=== PATIENT | male | born 1940 | race Caucasian/White ===

== ENCOUNTER 2019-03-04 22:54 | Emergency (ER) | payer MEDICARE, OTHER ==
[~2019-03-04] VITALS: Ht 180.3 cm; Wt 95.3 kg
[~2019-03-04 22:54] MED LIST: EPINEPHRINE HCL SYRINGE ONE
--- OUTSIDE RECORDS SUMMARY | 2019-03-04 22:58 | XMS REPORT ---
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 Allergies, Adverse Reactions, Alerts Allergy Name Allergy Type Status Severity Reaction(s) Onset Date Inactive Date Treating Clinician Comments Penicillins DA Active U 2019-01-21 00:00:00 vancomycin DA Active U 2019-01-21 00:00:00 VANCOMYOCIN DA Active U 2019-01-21 00:00:00 Penicillins DA Active U 2018-11-07 00:00:00 Medications This patient has no known medications. Results Test Description Test Time Test Comments Text Results Atomic Results Result Comments AG HISTOPLASMA UA 2019-01-30 11:41:00 AG HISTOPLASMA UA (test code=HISUAAG) <0.5 EIA UNIT <1.0=NEG REFERENCE INTERVAL: <0.5 ng/mL [id number] 15:29:00* Test Item Value Reference Range Comments GLUBED (test code=GLUBED) 168 mg/dL 74-106 Performed by certified stretch press operator at [facility] [id number] 11:03:00* Test Item Value Reference Range Comments GLUBED (test code=GLUBED) 238 mg/dL 74-106 Performed by certified stretch press operator at [facility] CBC W/AUTO [id number] 08:30:00* Test Item Value Reference Range Comments WHITE BLOOD CELL (test code=WBC) 15.9 K/mm3 4.5-12.5 RED BLOOD CELL (test code=RBC) 3.16 mill/mm3 4.0-5.8 HEMOGLOBIN (test code=HGB) 8.9 gram/dL 13.0-17.5 HEMATOCRIT (test code=HCT) 30.4 % 42.0-52.0 MEAN CELL VOLUME (test code=MCV) 96.2 fL 80-98 MEAN CELL HGB (test code=MCH) 28.2 picogram 27.0-33.0 MEAN CELL HGB CONCETRATION (test code=MCHC) 29.3 gram/dL 33.0-36.0 RED CELL DISTRIBUTION WIDTH (test code=RDW) 15.4 % 11.6-16.2 RED CELL DISTRIBUTION WIDTH SD (test code=RDW-SD) 54.0 fL 37.0-51.0 PLATELET COUNT (test code=PLT) 520 K/mm3 150-450 RESULT VERIFIED BY REPEAT ANALYSIS MEAN PLATELET VOLUME (test code=MPV) 12.4 fL 6.7-11.0 NEUTROPHIL % (test code=NT%) 82.3 % 39.0-69.0 IMMATURE GRANULOCYTE % (test code=IG%) 0.9 % 0.0-5.0 LYMPHOCYTE % (test code=LY%) 5.0 % 25.0-55.0 MONOCYTE % (test code=MO%) 6.0 % 0.0-10.0 EOSINOPHIL % (test code=EO%) 5.6 % 0.0-5.0 BASOPHIL % (test code=BA%) 0.2 % 0.0-1.0 NUCLEATED RBC % (test code=NRBC%) 0.0 % 0-0 NEUTROPHIL # (test code=NT#) 13.10 K/mm3 1.8-7.7 IMMATURE GRANULOCYTE # (test code=IG#) 0.15 x10 3/uL 0-0.03 LYMPHOCYTE # (test code=LY#) 0.79 K/mm3 1.0-5.0 MONOCYTE # (test code=MO#) 0.96 K/mm3 0-0.8 EOSINOPHIL # (test code=EO#) 0.89 K/mm3 0.0-0.5 BASOPHIL # (test code=BA#) 0.03 K/mm3 0.0-0.2 NUCLEATED RBC # (test code=NRBC#) 0.00 K/mm3 0.0-0.1 MANUAL DIFF REQUIRED (test code=MDIFF) NO, ONLY SCAN NEEDED DIFFERENTIAL [id number] 08:30:00* Test Item Value Reference Range Comments STAIN ACCEPTABILITY (test code=STN ACCEPTABLE) STAIN ACCEPTABLE POLYCHROMASIA (test code=POLC) 1+ ANISOCYTOSIS (test code=ANISO) 1+ MICROCYTOSIS (test code=MICR) 1+ PLATELET ESTIMATE (test code=PLTEST) INCREASED PLATELET MORPHOLOGY (test code=PLTMORPH) NORMAL COMPREHENSIVE METABOLIC [id number] 08:07:00* Test Item Value Reference Range Comments SODIUM (test code=NA) 141 mmol/L 136-145 POTASSIUM (test code=K) 4.4 mmol/L 3.5-5.1 CHLORIDE (test code=CL) 101.0 mmol/L 98-107 CARBON DIOXIDE (test code=CO2) 37.0 mmol/L 21-32 ANION GAP (test code=GAP) 7.4 10-20 GLUCOSE (test code=GLU) 210 mg/dL 74-106 BLOOD UREA NITROGEN (test code=BUN) 52 mg/dL 7-18 GLOMERULAR FILTRATION RATE (test code=GFR) > 60 mL/min >=60 Estimated GFR by using Modified MDRD formula.Chronic kidney disease is defined as either kidney damageor GFR <60 mL/min/1.73 m2 for >3 months. CREATININE (test code=CREAT) 0.70 mg/dL 0.7-1.3 BUN/CREATININE RATIO (test code=BUN/CREA) 74.3 10-20 TOTAL PROTEIN (test code=PROT) 6.0 gram/dL 6.4-8.2 ALBUMIN (test code=ALB) 1.2 g/dL 3.4-5.0 GLOBULIN (test code=GLOB) 4.8 gram/dL 2.7-4.2 ALBUMIN/GLOBULIN RATIO (test code=A/G) 0.3 0.75-1.50 CALCIUM (test code=CA) 9.2 mg/dL 8.5-10.1 BILIRUBIN TOTAL (test code=BILT) 0.10 mg/dL 0.0-1.0 SGOT/AST (test code=AST) 29 IUnit/L 15-37 SGPT/ALT (test code=ALT) 35 IUnit/L 12-78 ALKALINE PHOSPHATASE TOTAL (test code=ALKP) 221 IUnit/L 45-117 Note change in reference range due to change in reagent. COMPREHENSIVE METABOLIC [id number] 08:00:00* Test Item Value Reference Range Comments SODIUM (test code=NA) 141 mmol/L 136-145 POTASSIUM (test code=K) 4.4 mmol/L 3.5-5.1 CHLORIDE (test code=CL) 101.0 mmol/L 98-107 CARBON DIOXIDE (test code=CO2) mmol/L 21-32 ANION GAP (test code=GAP) 10-20 GLUCOSE (test code=GLU) mg/dL 74-106 BLOOD UREA NITROGEN (test code=BUN) mg/dL 7-18 GLOMERULAR FILTRATION RATE (test code=GFR) mL/min >=60 CREATININE (test code=CREAT) mg/dL 0.7-1.3 BUN/CREATININE RATIO (test code=BUN/CREA) 10-20 TOTAL PROTEIN (test code=PROT) gram/dL 6.4-8.2 ALBUMIN (test code=ALB) g/dL 3.4-5.0 GLOBULIN (test code=GLOB) gram/dL 2.7-4.2 ALBUMIN/GLOBULIN RATIO (test code=A/G) 0.75-1.50 CALCIUM (test code=CA) mg/dL 8.5-10.1 BILIRUBIN TOTAL (test code=BILT) mg/dL 0.0-1.0 SGOT/AST (test code=AST) IUnit/L 15-37 SGPT/ALT (test code=ALT) IUnit/L 12-78 ALKALINE PHOSPHATASE TOTAL (test code=ALKP) IUnit/L 45-117 CBC W/AUTO [id number] 07:23:00* Test Item Value Reference Range Comments WHITE BLOOD CELL (test code=WBC) 15.9 K/mm3 4.5-12.5 RED BLOOD CELL (test code=RBC) 3.16 mill/mm3 4.0-5.8 HEMOGLOBIN (test code=HGB) 8.9 gram/dL 13.0-17.5 HEMATOCRIT (test code=HCT) 30.4 % 42.0-52.0 MEAN CELL VOLUME (test code=MCV) 96.2 fL 80-98 MEAN CELL HGB (test code=MCH) 28.2 picogram 27.0-33.0 MEAN CELL HGB CONCETRATION (test code=MCHC) 29.3 gram/dL 33.0-36.0 RED CELL DISTRIBUTION WIDTH (test code=RDW) 15.4 % 11.6-16.2 RED CELL DISTRIBUTION WIDTH SD (test code=RDW-SD) 54.0 fL 37.0-51.0 PLATELET COUNT (test code=PLT) 520 K/mm3 150-450 RESULT VERIFIED BY REPEAT ANALYSIS MEAN PLATELET VOLUME (test code=MPV) 12.4 fL 6.7-11.0 NEUTROPHIL % (test code=NT%) 82.3 % 39.0-69.0 IMMATURE GRANULOCYTE % (test code=IG%) 0.9 % 0.0-5.0 LYMPHOCYTE % (test code=LY%) 5.0 % 25.0-55.0 MONOCYTE % (test code=MO%) 6.0 % 0.0-10.0 EOSINOPHIL % (test code=EO%) 5.6 % 0.0-5.0 BASOPHIL % (test code=BA%) 0.2 % 0.0-1.0 NUCLEATED RBC % (test code=NRBC%) 0.0 % 0-0 NEUTROPHIL # (test code=NT#) 13.10 K/mm3 1.8-7.7 IMMATURE GRANULOCYTE # (test code=IG#) 0.15 x10 3/uL 0-0.03 LYMPHOCYTE # (test code=LY#) 0.79 K/mm3 1.0-5.0 MONOCYTE # (test code=MO#) 0.96 K/mm3 0-0.8 EOSINOPHIL # (test code=EO#) 0.89 K/mm3 0.0-0.5 BASOPHIL # (test code=BA#) 0.03 K/mm3 0.0-0.2 NUCLEATED RBC # (test code=NRBC#) 0.00 K/mm3 0.0-0.1 MANUAL DIFF REQUIRED (test code=MDIFF) NO, ONLY SCAN NEEDED DIFFERENTIAL [id number] 07:23:00* Test Item Value Reference Range Comments STAIN ACCEPTABILITY (test code=STN ACCEPTABLE) CABOT RINGS (test code=CAB) MORPHOLOGY COMMENT (test code=MOC) PLATELET ESTIMATE (test code=PLTEST) PLATELET MORPHOLOGY (test code=PLTMORPH) CBC W/AUTO [id number] 07:23:00* Test Item Value Reference Range Comments WHITE BLOOD CELL (test code=WBC) 15.9 K/mm3 4.5-12.5 RED BLOOD CELL (test code=RBC) 3.16 mill/mm3 4.0-5.8 HEMOGLOBIN (test code=HGB) 8.9 gram/dL 13.0-17.5 HEMATOCRIT (test code=HCT) 30.4 % 42.0-52.0 MEAN CELL VOLUME (test code=MCV) 96.2 fL 80-98 MEAN CELL HGB (test code=MCH) 28.2 picogram 27.0-33.0 MEAN CELL HGB CONCETRATION (test code=MCHC) 29.3 gram/dL 33.0-36.0 RED CELL DISTRIBUTION WIDTH (test code=RDW) 15.4 % 11.6-16.2 RED CELL DISTRIBUTION WIDTH SD (test code=RDW-SD) 54.0 fL 37.0-51.0 PLATELET COUNT (test code=PLT) 520 K/mm3 150-450 RESULT VERIFIED BY REPEAT ANALYSIS MEAN PLATELET VOLUME (test code=MPV) 12.4 fL 6.7-11.0 NEUTROPHIL % (test code=NT%) 82.3 % 39.0-69.0 IMMATURE GRANULOCYTE % (test code=IG%) 0.9 % 0.0-5.0 LYMPHOCYTE % (test code=LY%) 5.0 % 25.0-55.0 MONOCYTE % (test code=MO%) 6.0 % 0.0-10.0 EOSINOPHIL % (test code=EO%) 5.6 % 0.0-5.0 BASOPHIL % (test code=BA%) 0.2 % 0.0-1.0 NUCLEATED RBC % (test code=NRBC%) 0.0 % 0-0 NEUTROPHIL # (test code=NT#) 13.10 K/mm3 1.8-7.7 IMMATURE GRANULOCYTE # (test code=IG#) 0.15 x10 3/uL 0-0.03 LYMPHOCYTE # (test code=LY#) 0.79 K/mm3 1.0-5.0 MONOCYTE # (test code=MO#) 0.96 K/mm3 0-0.8 EOSINOPHIL # (test code=EO#) 0.89 K/mm3 0.0-0.5 BASOPHIL # (test code=BA#) 0.03 K/mm3 0.0-0.2 NUCLEATED RBC # (test code=NRBC#) 0.00 K/mm3 0.0-0.1 MANUAL DIFF REQUIRED (test code=MDIFF) NO, ONLY SCAN NEEDED DIFFERENTIAL [id number] 07:23:00* Test Item Value Reference Range Comments STAIN ACCEPTABILITY (test code=STN ACCEPTABLE) CABOT RINGS (test code=CAB) MORPHOLOGY COMMENT (test code=MOC) PLATELET ESTIMATE (test code=PLTEST) PLATELET MORPHOLOGY (test code=PLTMORPH) CBC W/AUTO [id number] 07:23:00* Test Item Value Reference Range Comments WHITE BLOOD CELL (test code=WBC) 15.9 K/mm3 4.5-12.5 RED BLOOD CELL (test code=RBC) 3.16 mill/mm3 4.0-5.8 HEMOGLOBIN (test code=HGB) 8.9 gram/dL 13.0-17.5 HEMATOCRIT (test code=HCT) 30.4 % 42.0-52.0 MEAN CELL VOLUME (test code=MCV) 96.2 fL 80-98 MEAN CELL HGB (test code=MCH) 28.2 picogram 27.0-33.0 MEAN CELL HGB CONCETRATION (test code=MCHC) 29.3 gram/dL 33.0-36.0 RED CELL DISTRIBUTION WIDTH (test code=RDW) 15.4 % 11.6-16.2 RED CELL DISTRIBUTION WIDTH SD (test code=RDW-SD) 54.0 fL 37.0-51.0 PLATELET COUNT (test code=PLT) 520 K/mm3 150-450 RESULT VERIFIED BY REPEAT ANALYSIS MEAN PLATELET VOLUME (test code=MPV) 12.4 fL 6.7-11.0 NEUTROPHIL % (test code=NT%) 82.3 % 39.0-69.0 IMMATURE GRANULOCYTE % (test code=IG%) 0.9 % 0.0-5.0 LYMPHOCYTE % (test code=LY%) 5.0 % 25.0-55.0 MONOCYTE % (test code=MO%) 6.0 % 0.0-10.0 EOSINOPHIL % (test code=EO%) 5.6 % 0.0-5.0 BASOPHIL % (test code=BA%) 0.2 % 0.0-1.0 NUCLEATED RBC % (test code=NRBC%) 0.0 % 0-0 NEUTROPHIL # (test code=NT#) 13.10 K/mm3 1.8-7.7 IMMATURE GRANULOCYTE # (test code=IG#) 0.15 x10 3/uL 0-0.03 LYMPHOCYTE # (test code=LY#) 0.79 K/mm3 1.0-5.0 MONOCYTE # (test code=MO#) 0.96 K/mm3 0-0.8 EOSINOPHIL # (test code=EO#) 0.89 K/mm3 0.0-0.5 BASOPHIL # (test code=BA#) 0.03 K/mm3 0.0-0.2 NUCLEATED RBC # (test code=NRBC#) 0.00 K/mm3 0.0-0.1 MANUAL DIFF REQUIRED (test code=MDIFF) NO, ONLY SCAN NEEDED DIFFERENTIAL [id number] 07:23:00* Test Item Value Reference Range Comments STAIN ACCEPTABILITY (test code=STN ACCEPTABLE) MORPHOLOGY COMMENT (test code=MOC) PLATELET ESTIMATE (test code=PLTEST) PLATELET MORPHOLOGY (test code=PLTMORPH) CBC W/AUTO [id number] 07:23:00* Test Item Value Reference Range Comments WHITE BLOOD CELL (test code=WBC) 15.9 K/mm3 4.5-12.5 RED BLOOD CELL (test code=RBC) 3.16 mill/mm3 4.0-5.8 HEMOGLOBIN (test code=HGB) 8.9 gram/dL 13.0-17.5 HEMATOCRIT (test code=HCT) 30.4 % 42.0-52.0 MEAN CELL VOLUME (test code=MCV) 96.2 fL 80-98 MEAN CELL HGB (test code=MCH) 28.2 picogram 27.0-33.0 MEAN CELL HGB CONCETRATION (test code=MCHC) 29.3 gram/dL 33.0-36.0 RED CELL DISTRIBUTION WIDTH (test code=RDW) 15.4 % 11.6-16.2 RED CELL DISTRIBUTION WIDTH SD (test code=RDW-SD) 54.0 fL 37.0-51.0 PLATELET COUNT (test code=PLT) 520 K/mm3 150-450 RESULT VERIFIED BY REPEAT ANALYSIS MEAN PLATELET VOLUME (test code=MPV) 12.4 fL 6.7-11.0 NEUTROPHIL % (test code=NT%) 82.3 % 39.0-69.0 IMMATURE GRANULOCYTE % (test code=IG%) 0.9 % 0.0-5.0 LYMPHOCYTE % (test code=LY%) 5.0 % 25.0-55.0 MONOCYTE % (test code=MO%) 6.0 % 0.0-10.0 EOSINOPHIL % (test code=EO%) 5.6 % 0.0-5.0 BASOPHIL % (test code=BA%) 0.2 % 0.0-1.0 NUCLEATED RBC % (test code=NRBC%) 0.0 % 0-0 NEUTROPHIL # (test code=NT#) 13.10 K/mm3 1.8-7.7 IMMATURE GRANULOCYTE # (test code=IG#) 0.15 x10 3/uL 0-0.03 LYMPHOCYTE # (test code=LY#) 0.79 K/mm3 1.0-5.0 MONOCYTE # (test code=MO#) 0.96 K/mm3 0-0.8 EOSINOPHIL # (test code=EO#) 0.89 K/mm3 0.0-0.5 BASOPHIL # (test code=BA#) 0.03 K/mm3 0.0-0.2 NUCLEATED RBC # (test code=NRBC#) 0.00 K/mm3 0.0-0.1 MANUAL DIFF REQUIRED (test code=MDIFF) NO, ONLY SCAN NEEDED DIFFERENTIAL [id number] 07:23:00* Test Item Value Reference Range Comments STAIN ACCEPTABILITY (test code=STN ACCEPTABLE) CABOT RINGS (test code=CAB) MORPHOLOGY COMMENT (test code=MOC) PLATELET ESTIMATE (test code=PLTEST) PLATELET MORPHOLOGY (test code=PLTMORPH) [id number] 21:23:00* Test Item Value Reference Range Comments GLUBED (test code=GLUBED) 196 mg/dL 74-106 Performed by certified stretch press operator at [facility] [id number] 16:01:00* Test Item Value Reference Range Comments GLUBED (test code=GLUBED) 235 mg/dL 74-106 Performed by certified stretch press operator at [facility] [id number] 11:41:00* Test Item Value Reference Range Comments GLUBED (test code=GLUBED) 164 mg/dL 74-106 Performed by certified stretch press operator at [facility] CBC W/AUTO [id number] 10:16:00* Test Item Value Reference Range Comments WHITE BLOOD CELL (test code=WBC) 19.0 K/mm3 4.5-12.5 RED BLOOD CELL (test code=RBC) 3.01 mill/mm3 4.0-5.8 HEMOGLOBIN (test code=HGB) 8.7 gram/dL 13.0-17.5 RESULT VERIFIED BY REPEAT ANALYSIS HEMATOCRIT (test code=HCT) 29.3 % 42.0-52.0 MEAN CELL VOLUME (test code=MCV) 97.3 fL 80-98 MEAN CELL HGB (test code=MCH) 28.9 picogram 27.0-33.0 MEAN CELL HGB CONCETRATION (test code=MCHC) 29.7 gram/dL 33.0-36.0 RED CELL DISTRIBUTION WIDTH (test code=RDW) 15.8 % 11.6-16.2 RED CELL DISTRIBUTION WIDTH SD (test code=RDW-SD) 55.3 fL 37.0-51.0 PLATELET COUNT (test code=PLT) 460 K/mm3 150-450 MEAN PLATELET VOLUME (test code=MPV) 12.2 fL 6.7-11.0 NEUTROPHIL % (test code=NT%) 81.4 % 39.0-69.0 IMMATURE GRANULOCYTE % (test code=IG%) 1.3 % 0.0-5.0 LYMPHOCYTE % (test code=LY%) 6.7 % 25.0-55.0 MONOCYTE % (test code=MO%) 5.4 % 0.0-10.0 EOSINOPHIL % (test code=EO%) 5.0 % 0.0-5.0 BASOPHIL % (test code=BA%) 0.2 % 0.0-1.0 NUCLEATED RBC % (test code=NRBC%) 0.0 % 0-0 NEUTROPHIL # (test code=NT#) 15.42 K/mm3 1.8-7.7 IMMATURE GRANULOCYTE # (test code=IG#) 0.25 x10 3/uL 0-0.03 LYMPHOCYTE # (test code=LY#) 1.28 K/mm3 1.0-5.0 MONOCYTE # (test code=MO#) 1.03 K/mm3 0-0.8 EOSINOPHIL # (test code=EO#) 0.95 K/mm3 0.0-0.5 BASOPHIL # (test code=BA#) 0.04 K/mm3 0.0-0.2 NUCLEATED RBC # (test code=NRBC#) 0.00 K/mm3 0.0-0.1 MANUAL DIFF REQUIRED (test code=MDIFF) NO, ONLY SCAN NEEDED DIFFERENTIAL [id number] 10:16:00* Test Item Value Reference Range Comments STAIN ACCEPTABILITY (test code=STN ACCEPTABLE) STAIN ACCEPTABLE POLYCHROMASIA (test code=POLC) 1+ HYPOCHROMIA (test code=HYPO) 1+ BASOPHILIC STIPPLING (test code=STP) 1+ ANISOCYTOSIS (test code=ANISO) 1+ PLATELET ESTIMATE (test code=PLTEST) INCREASED PLATELET MORPHOLOGY (test code=PLTMORPH) SIZE VARIABLE - CT CHEST W/O [id number] 09:35:00 Name: ZEESHAN JOHN [facility] : 1940 Age/S: 78 / M [address] [facility] Unit #: [id number] Loc: Christa RAJWINDER [address] Phys: Cassandra Lofton MD Acct: [id number] Dis Date: Status: ADM IN PHONE #: [phone] Exam Date: 01/27/2019914 FAX #: [phone] Reason: Respiratory EXAMS: CPT CODE: [id number] CT CHEST W/O CONTRAST 72564 HISTORY: Respiratory failure. COMPARISON: Chest x-ray from previous day. CT chest without contrast: Automated exposure control. Bibasal infiltrates with basal predominance. Moderate bibasal effusions with segmental lower lobe atelectasis. No bronchiectasis, honeycombing or fibrosis or endobronchial lesions. Tracheostomy tube tip is above the myke. Normal caliber unopacified aorta and pulmonary arteries. Heterogeneous thyroid glands. Esophageal wall is not thickened. No pathologic adenopathy. Cardiomegaly without pericardial effusion. Visualized upper abdomen is limited by beam hardening artifact from patient's arms but appears gr ossly. Subcutaneous tissues and the musculature are normal in appearance. No lytic or blastic lesions are noted within the bony skeleton. DJD. IMPRESSION: Bilateral infiltrates with basal predom inance. Bilateral moderate pleural effusions with subsegmental atelectas is of the lower lobes. No pathologic adenopathy. Electronica lly Signed by Jack Candelaria on 01/27/2019 at 0935 Re ported and signed by: Ayan Candelaria M.D. CC: Jean Ernst MD; Cassandra Lofton MD Technologist:Flora Bartlett,RT(R),CT C TDI: DLP: Trnscb Date/Time: 01/27/2019 (0935) [email or web address] Orig Print D/T: S: 01/27/2019 (3277) PAGE 1 Signed Report B-TYPE NATRIURETIC PEPTIDE 2019-01-27 09:32:00* Test Item Value Reference Range Comments B-TYPE NATRIURETIC PEPTIDE (test code=BNP) 981.51 pgram/mL 0-100 COMPREHENSIVE METABOLIC [id number] 09:14:00* Test Item Value Reference Range Comments SODIUM (test code=NA) 141 mmol/L 136-145 POTASSIUM (test code=K) 4.3 mmol/L 3.5-5.1 CHLORIDE (test code=CL) 101.0 mmol/L 98-107 CARBON DIOXIDE (test code=CO2) 37.0 mmol/L 21-32 ANION GAP (test code=GAP) 7.3 10-20 GLUCOSE (test code=GLU) 129 mg/dL 74-106 BLOOD UREA NITROGEN (test code=BUN) 63 mg/dL 7-18 GLOMERULAR FILTRATION RATE (test code=GFR) > 60 mL/min >=60 Estimated GFR by using Modified MDRD formula.Chronic kidney disease is defined as either kidney damageor GFR <60 mL/min/1.73 m2 for >3 months. CREATININE (test code=CREAT) 0.90 mg/dL 0.7-1.3 BUN/CREATININE RATIO (test code=BUN/CREA) 70.0 10-20 TOTAL PROTEIN (test code=PROT) 6.4 gram/dL 6.4-8.2 ALBUMIN (test code=ALB) 1.3 g/dL 3.4-5.0 GLOBULIN (test code=GLOB) 5.1 gram/dL 2.7-4.2 ALBUMIN/GLOBULIN RATIO (test code=A/G) 0.3 0.75-1.50 CALCIUM (test code=CA) 9.1 mg/dL 8.5-10.1 BILIRUBIN TOTAL (test code=BILT) 0.10 mg/dL 0.0-1.0 SGOT/AST (test code=AST) 36 IUnit/L 15-37 SGPT/ALT (test code=ALT) 44 IUnit/L 12-78 ALKALINE PHOSPHATASE TOTAL (test code=ALKP) 208 IUnit/L 45-117 Note change in reference range due to change in reagent. [id number] 09:14:00* Test Item Value Reference Range Comments PHOSPHORUS (test code=PHOS) 4.1 mg/dL 2.5-4.9 [id number] 09:14:00* Test Item Value Reference Range Comments AMYLASE (test code=MOIZ) 24 Unit/L 25-115 [id number] 09:14:00* Test Item Value Reference Range Comments LIPASE (test code=LIP) 76 U/L 73.0-393.0 [id number] 09:14:00* Test Item Value Reference Range Comments MAGNESIUM (test code=MAG) 2.8 mg/dL 1.8-2.4 CALCIUM [id number] 09:14:00* Test Item Value Reference Range Comments CALCIUM IONIZED (test code=HARPAL) 1.25 mmol/L 1.12-1.32 LACTIC [id number] 09:13:00* Test Item Value Reference Range Comments LACTIC ACID (test code=LACT) 1.9 mmol/L 0.4-1.9 COMPREHENSIVE METABOLIC [id number] 08:56:00* Test Item Value Reference Range Comments SODIUM (test code=NA) 141 mmol/L 136-145 POTASSIUM (test code=K) 4.3 mmol/L 3.5-5.1 CHLORIDE (test code=CL) 101.0 mmol/L 98-107 CARBON DIOXIDE (test code=CO2) 37.0 mmol/L 21-32 ANION GAP (test code=GAP) 7.3 10-20 GLUCOSE (test code=GLU) 129 mg/dL 74-106 BLOOD UREA NITROGEN (test code=BUN) 63 mg/dL 7-18 GLOMERULAR FILTRATION RATE (test code=GFR) > 60 mL/min >=60 Estimated GFR by using Modified MDRD formula.Chronic kidney disease is defined as either kidney damageor GFR <60 mL/min/1.73 m2 for >3 months. CREATININE (test code=CREAT) 0.90 mg/dL 0.7-1.3 BUN/CREATININE RATIO (test code=BUN/CREA) 70.0 10-20 TOTAL PROTEIN (test code=PROT) 6.4 gram/dL 6.4-8.2 ALBUMIN (test code=ALB) 1.3 g/dL 3.4-5.0 GLOBULIN (test code=GLOB) 5.1 gram/dL 2.7-4.2 ALBUMIN/GLOBULIN RATIO (test code=A/G) 0.3 0.75-1.50 CALCIUM (test code=CA) 9.1 mg/dL 8.5-10.1 BILIRUBIN TOTAL (test code=BILT) 0.10 mg/dL 0.0-1.0 SGOT/AST (test code=AST) 36 IUnit/L 15-37 SGPT/ALT (test code=ALT) 44 IUnit/L 12-78 ALKALINE PHOSPHATASE TOTAL (test code=ALKP) 208 IUnit/L 45-117 Note change in reference range due to change in reagent. [id number] 08:56:00* Test Item Value Reference Range Comments PHOSPHORUS (test code=PHOS) 4.1 mg/dL 2.5-4.9 [id number] 08:56:00* Test Item Value Reference Range Comments AMYLASE (test code=MOIZ) 24 Unit/L 25-115 [id number] 08:56:00* Test Item Value Reference Range Comments LIPASE (test code=LIP) 76 U/L 73.0-393.0 [id number] 08:56:00* Test Item Value Reference Range Comments MAGNESIUM (test code=MAG) 2.8 mg/dL 1.8-2.4 CALCIUM [id number] 08:56:00* Test Item Value Reference Range Comments CALCIUM IONIZED (test code=HARPAL) mmol/L 1.12-1.32 COMPREHENSIVE METABOLIC [id number] 08:46:00* Test Item Value Reference Range Comments SODIUM (test code=NA) 141 mmol/L 136-145 POTASSIUM (test code=K) 4.3 mmol/L 3.5-5.1 CHLORIDE (test code=CL) 101.0 mmol/L 98-107 CARBON DIOXIDE (test code=CO2) mmol/L 21-32 ANION GAP (test code=GAP) 10-20 GLUCOSE (test code=GLU) mg/dL 74-106 BLOOD UREA NITROGEN (test code=BUN) mg/dL 7-18 GLOMERULAR FILTRATION RATE (test code=GFR) mL/min >=60 CREATININE (test code=CREAT) mg/dL 0.7-1.3 BUN/CREATININE RATIO (test code=BUN/CREA) 10-20 TOTAL PROTEIN (test code=PROT) gram/dL 6.4-8.2 ALBUMIN (test code=ALB) g/dL 3.4-5.0 GLOBULIN (test code=GLOB) gram/dL 2.7-4.2 ALBUMIN/GLOBULIN RATIO (test code=A/G) 0.75-1.50 CALCIUM (test code=CA) mg/dL 8.5-10.1 BILIRUBIN TOTAL (test code=BILT) mg/dL 0.0-1.0 SGOT/AST (test code=AST) IUnit/L 15-37 SGPT/ALT (test code=ALT) IUnit/L 12-78 ALKALINE PHOSPHATASE TOTAL (test code=ALKP) IUnit/L 45-117 [id number] 08:46:00* Test Item Value Reference Range Comments PHOSPHORUS (test code=PHOS) mg/dL 2.5-4.9 [id number] 08:46:00* Test Item Value Reference Range Comments AMYLASE (test code=MOIZ) Unit/L 25-115 [id number] 08:46:00* Test Item Value Reference Range Comments LIPASE (test code=LIP) U/L 73.0-393.0 [id number] 08:46:00* Test Item Value Reference Range Comments MAGNESIUM (test code=MAG) mg/dL 1.8-2.4 CALCIUM [id number] 08:46:00* Test Item Value Reference Range Comments CALCIUM IONIZED (test code=HARPAL) mmol/L 1.12-1.32 PROTHROMBIN [id number] 08:45:00* Test Item Value Reference Range Comments PROTHROMBIN TIME PATIENT (test code=PTP) 13.7 seconds 9.0-14.0 INTERNATIONAL NORMAL RATIO (test code=INR) 1.2 0.8-1.2 The therapeutic range for oral anticoagulant therapy formost indications is an international normalized ratio (INR)of between 2.0 and 3.0. The recommended therapeutic INRrange for various clinical situations is listed below: Clinical Situation INR range Pulmonary e mbolism treatment (2.0-3.0)Venous thrombosis treatmentVenous thrombosis prophylaxis (high risk surgery)Prevention of systemic embolism from: Acute myocardial infarction Valvular heart disease Atrial fibrillation Mechanical prosthetic heart valves (2.5-3.5) IS PATIENT ON ANTICOAGULANTS? [facility] W/AUTO [id number] 08:42:00* Test Item Value Reference Range Comments WHITE BLOOD CELL (test code=WBC) 19.0 K/mm3 4.5-12.5 RED BLOOD CELL (test code=RBC) 3.01 mill/mm3 4.0-5.8 HEMOGLOBIN (test code=HGB) 8.7 gram/dL 13.0-17.5 RESULT VERIFIED BY REPEAT ANALYSIS HEMATOCRIT (test code=HCT) 29.3 % 42.0-52.0 MEAN CELL VOLUME (test code=MCV) 97.3 fL 80-98 MEAN CELL HGB (test code=MCH) 28.9 picogram 27.0-33.0 MEAN CELL HGB CONCETRATION (test code=MCHC) 29.7 gram/dL 33.0-36.0 RED CELL DISTRIBUTION WIDTH (test code=RDW) 15.8 % 11.6-16.2 RED CELL DISTRIBUTION WIDTH SD (test code=RDW-SD) 55.3 fL 37.0-51.0 PLATELET COUNT (test code=PLT) 460 K/mm3 150-450 MEAN PLATELET VOLUME (test code=MPV) 12.2 fL 6.7-11.0 NEUTROPHIL % (test code=NT%) 81.4 % 39.0-69.0 IMMATURE GRANULOCYTE % (test code=IG%) 1.3 % 0.0-5.0 LYMPHOCYTE % (test code=LY%) 6.7 % 25.0-55.0 MONOCYTE % (test code=MO%) 5.4 % 0.0-10.0 EOSINOPHIL % (test code=EO%) 5.0 % 0.0-5.0 BASOPHIL % (test code=BA%) 0.2 % 0.0-1.0 NUCLEATED RBC % (test code=NRBC%) 0.0 % 0-0 NEUTROPHIL # (test code=NT#) 15.42 K/mm3 1.8-7.7 IMMATURE GRANULOCYTE # (test code=IG#) 0.25 x10 3/uL 0-0.03 LYMPHOCYTE # (test code=LY#) 1.28 K/mm3 1.0-5.0 MONOCYTE # (test code=MO#) 1.03 K/mm3 0-0.8 EOSINOPHIL # (test code=EO#) 0.95 K/mm3 0.0-0.5 BASOPHIL # (test code=BA#) 0.04 K/mm3 0.0-0.2 NUCLEATED RBC # (test code=NRBC#) 0.00 K/mm3 0.0-0.1 MANUAL DIFF REQUIRED (test code=MDIFF) NO, ONLY SCAN NEEDED DIFFERENTIAL [id number] 08:42:00* Test Item Value Reference Range Comments STAIN ACCEPTABILITY (test code=STN ACCEPTABLE) CABOT RINGS (test code=CAB) MORPHOLOGY COMMENT (test code=MOC) PLATELET ESTIMATE (test code=PLTEST) PLATELET MORPHOLOGY (test code=PLTMORPH) CBC W/AUTO [id number] 08:42:00* Test Item Value Reference Range Comments WHITE BLOOD CELL (test code=WBC) 19.0 K/mm3 4.5-12.5 RED BLOOD CELL (test code=RBC) 3.01 mill/mm3 4.0-5.8 HEMOGLOBIN (test code=HGB) 8.7 gram/dL 13.0-17.5 RESULT VERIFIED BY REPEAT ANALYSIS HEMATOCRIT (test code=HCT) 29.3 % 42.0-52.0 MEAN CELL VOLUME (test code=MCV) 97.3 fL 80-98 MEAN CELL HGB (test code=MCH) 28.9 picogram 27.0-33.0 MEAN CELL HGB CONCETRATION (test code=MCHC) 29.7 gram/dL 33.0-36.0 RED CELL DISTRIBUTION WIDTH (test code=RDW) 15.8 % 11.6-16.2 RED CELL DISTRIBUTION WIDTH SD (test code=RDW-SD) 55.3 fL 37.0-51.0 PLATELET COUNT (test code=PLT) 460 K/mm3 150-450 MEAN PLATELET VOLUME (test code=MPV) 12.2 fL 6.7-11.0 NEUTROPHIL % (test code=NT%) 81.4 % 39.0-69.0 IMMATURE GRANULOCYTE % (test code=IG%) 1.3 % 0.0-5.0 LYMPHOCYTE % (test code=LY%) 6.7 % 25.0-55.0 MONOCYTE % (test code=MO%) 5.4 % 0.0-10.0 EOSINOPHIL % (test code=EO%) 5.0 % 0.0-5.0 BASOPHIL % (test code=BA%) 0.2 % 0.0-1.0 NUCLEATED RBC % (test code=NRBC%) 0.0 % 0-0 NEUTROPHIL # (test code=NT#) 15.42 K/mm3 1.8-7.7 IMMATURE GRANULOCYTE # (test code=IG#) 0.25 x10 3/uL 0-0.03 LYMPHOCYTE # (test code=LY#) 1.28 K/mm3 1.0-5.0 MONOCYTE # (test code=MO#) 1.03 K/mm3 0-0.8 EOSINOPHIL # (test code=EO#) 0.95 K/mm3 0.0-0.5 BASOPHIL # (test code=BA#) 0.04 K/mm3 0.0-0.2 NUCLEATED RBC # (test code=NRBC#) 0.00 K/mm3 0.0-0.1 MANUAL DIFF REQUIRED (test code=MDIFF) NO, ONLY SCAN NEEDED DIFFERENTIAL [id number] 08:42:00* Test Item Value Reference Range Comments STAIN ACCEPTABILITY (test code=STN ACCEPTABLE) CABOT RINGS (test code=CAB) MORPHOLOGY COMMENT (test code=MOC) PLATELET ESTIMATE (test code=PLTEST) PLATELET MORPHOLOGY (test code=PLTMORPH) CBC W/AUTO [id number] 08:42:00* Test Item Value Reference Range Comments WHITE BLOOD CELL (test code=WBC) 19.0 K/mm3 4.5-12.5 RED BLOOD CELL (test code=RBC) 3.01 mill/mm3 4.0-5.8 HEMOGLOBIN (test code=HGB) 8.7 gram/dL 13.0-17.5 RESULT VERIFIED BY REPEAT ANALYSIS HEMATOCRIT (test code=HCT) 29.3 % 42.0-52.0 MEAN CELL VOLUME (test code=MCV) 97.3 fL 80-98 MEAN CELL HGB (test code=MCH) 28.9 picogram 27.0-33.0 MEAN CELL HGB CONCETRATION (test code=MCHC) 29.7 gram/dL 33.0-36.0 RED CELL DISTRIBUTION WIDTH (test code=RDW) 15.8 % 11.6-16.2 RED CELL DISTRIBUTION WIDTH SD (test code=RDW-SD) 55.3 fL 37.0-51.0 PLATELET COUNT (test code=PLT) 460 K/mm3 150-450 MEAN PLATELET VOLUME (test code=MPV) 12.2 fL 6.7-11.0 NEUTROPHIL % (test code=NT%) 81.4 % 39.0-69.0 IMMATURE GRANULOCYTE % (test code=IG%) 1.3 % 0.0-5.0 LYMPHOCYTE % (test code=LY%) 6.7 % 25.0-55.0 MONOCYTE % (test code=MO%) 5.4 % 0.0-10.0 EOSINOPHIL % (test code=EO%) 5.0 % 0.0-5.0 BASOPHIL % (test code=BA%) 0.2 % 0.0-1.0 NUCLEATED RBC % (test code=NRBC%) 0.0 % 0-0 NEUTROPHIL # (test code=NT#) 15.42 K/mm3 1.8-7.7 IMMATURE GRANULOCYTE # (test code=IG#) 0.25 x10 3/uL 0-0.03 LYMPHOCYTE # (test code=LY#) 1.28 K/mm3 1.0-5.0 MONOCYTE # (test code=MO#) 1.03 K/mm3 0-0.8 EOSINOPHIL # (test code=EO#) 0.95 K/mm3 0.0-0.5 BASOPHIL # (test code=BA#) 0.04 K/mm3 0.0-0.2 NUCLEATED RBC # (test code=NRBC#) 0.00 K/mm3 0.0-0.1 MANUAL DIFF REQUIRED (test code=MDIFF) NO, ONLY SCAN NEEDED DIFFERENTIAL [id number] 08:42:00* Test Item Value Reference Range Comments STAIN ACCEPTABILITY (test code=STN ACCEPTABLE) MORPHOLOGY COMMENT (test code=MOC) PLATELET ESTIMATE (test code=PLTEST) PLATELET MORPHOLOGY (test code=PLTMORPH) CBC W/AUTO [id number] 08:42:00* Test Item Value Reference Range Comments WHITE BLOOD CELL (test code=WBC) 19.0 K/mm3 4.5-12.5 RED BLOOD CELL (test code=RBC) 3.01 mill/mm3 4.0-5.8 HEMOGLOBIN (test code=HGB) 8.7 gram/dL 13.0-17.5 RESULT VERIFIED BY REPEAT ANALYSIS HEMATOCRIT (test code=HCT) 29.3 % 42.0-52.0 MEAN CELL VOLUME (test code=MCV) 97.3 fL 80-98 MEAN CELL HGB (test code=MCH) 28.9 picogram 27.0-33.0 MEAN CELL HGB CONCETRATION (test code=MCHC) 29.7 gram/dL 33.0-36.0 RED CELL DISTRIBUTION WIDTH (test code=RDW) 15.8 % 11.6-16.2 RED CELL DISTRIBUTION WIDTH SD (test code=RDW-SD) 55.3 fL 37.0-51.0 PLATELET COUNT (test code=PLT) 460 K/mm3 150-450 MEAN PLATELET VOLUME (test code=MPV) 12.2 fL 6.7-11.0 NEUTROPHIL % (test code=NT%) 81.4 % 39.0-69.0 IMMATURE GRANULOCYTE % (test code=IG%) 1.3 % 0.0-5.0 LYMPHOCYTE % (test code=LY%) 6.7 % 25.0-55.0 MONOCYTE % (test code=MO%) 5.4 % 0.0-10.0 EOSINOPHIL % (test code=EO%) 5.0 % 0.0-5.0 BASOPHIL % (test code=BA%) 0.2 % 0.0-1.0 NUCLEATED RBC % (test code=NRBC%) 0.0 % 0-0 NEUTROPHIL # (test code=NT#) 15.42 K/mm3 1.8-7.7 IMMATURE GRANULOCYTE # (test code=IG#) 0.25 x10 3/uL 0-0.03 LYMPHOCYTE # (test code=LY#) 1.28 K/mm3 1.0-5.0 MONOCYTE # (test code=MO#) 1.03 K/mm3 0-0.8 EOSINOPHIL # (test code=EO#) 0.95 K/mm3 0.0-0.5 BASOPHIL # (test code=BA#) 0.04 K/mm3 0.0-0.2 NUCLEATED RBC # (test code=NRBC#) 0.00 K/mm3 0.0-0.1 MANUAL DIFF REQUIRED (test code=MDIFF) NO, ONLY SCAN NEEDED DIFFERENTIAL [id number] 08:42:00* Test Item Value Reference Range Comments STAIN ACCEPTABILITY (test code=STN ACCEPTABLE) CABOT RINGS (test code=CAB) MORPHOLOGY COMMENT (test code=MOC) PLATELET ESTIMATE (test code=PLTEST) PLATELET MORPHOLOGY (test code=PLTMORPH) - XR CHEST 1 [id number] 08:10:00 FAX: Jean Marmolejo MD [phone] [place]: St: ADM FAX: Cassandra White MD [phone] Name: ALVAROZEESHAN [facility] : 1940 Age/S: 78/M [address] Unit #: [id number] Loc: V[address] [place] [address] Phys: Cassandra Lofton MD Acct: [id number] Dis Date: Status: ADM IN PHONE #: [phone] Exam Date: 01/27/2019 0736 FAX #: [phone] Reason: Respiratory distress EXAMS: CPT CODE: [id number] XR CHEST 1 V 47604 CLINICAL HISTORY: Respiratory distress TECHNIQUE: AP chest x-ray COMPARISON: Previous day. IMPRESSION: Improved aeration of the bilateral lung lucero. Bibasilar atelectasis. Small left pleural effusion. Cardiomegaly. Tracheostomy tube. at 0810 Reported and signed by: Sheela Esparza D.O. CC: Jean Ernst MD; Cassandra Lofton MD Technologist: MOHAN GRANT) Trnscrd Date/Time/By: 01/27/2019 (809) : By: [email or web address] Orig Print D/T: S: 01/27/2019 (08) PAGE 1 Signed Report [id number] 06:39:00* Test Item Value Reference Range Comments GLUBED (test code=GLUBED) 116 mg/dL 74-106 Performed by certified stretch press operator at [facility] [id number] 02:18:00* Test Item Value Reference Range Comments GLUBED (test code=GLUBED) 132 mg/dL 74-106 Performed by certified stretch press operator at [facility] [id number] 21:49:00* Test Item Value Reference Range Comments GLUBED (test code=GLUBED) 208 mg/dL 74-106 Performed by certified stretch press operator at [facility] [id number] 18:36:00* Test Item Value Reference Range Comments GLUBED (test code=GLUBED) 176 mg/dL 74-106 Performed by certified stretch press operator at [facility] ARTERIAL BLOOD [id number] 14:36:00* Test Item Value Reference Range Comments ARTERIAL BLOOD GAS PH (test code=PHA) 7.34 7.35-7.45 ARTERIAL BLOOD GAS PCO2 (test code=PCO2A) 67.5 mm Hg 35-45 Results called to and read back by Harshal 14:35 - 01/26/2019; by DOM ARTERIAL BLOOD GAS PO2 (test code=PO2A) 78.6 mmHg 80-100 BICARBONATE TOTAL HCO3 (test code=HCO3) 35.9 mmol/L 23.0-27.0 Results called to and read back by Harshal 14:01/26/2019; by DOM BASE EXCESS (test code=BENSON) 8.4 mmol/L -3.0-5.0 Results called to and read back by Harshal 14:01/26/2019; by DOM ABG O2 SATURATION (test code=SATA) 94.0 % 90.0-98.0 ABG TYPE (test code=TYPEA) Arterial FIO2 (test code=FIO2A) 60.0 ABG SITE (test code=SITEA) Rt RADIAL ARTERY HEMATOCRIT (test code=HCT/ABG) 31 % 42-52 TOTAL HGB (test code=THB) 10.5 gram/dL 13.0-17.5 HGB O2 SAT (test code=HBOSAT) 93.3 % 94.00-98.00 CARBOXYHEMOGLOBIN (test code=HOHGBT) 0.3 %totalHg 0.5-1.5 Results called to and read back by Harshal :01/26/2019; by DOM METHEMOGLOBIN (test code=METHGB) 0.4 % 0.0-1.50 O2 CONTENT (test code=O2CT) 13.9 % vol 18.0-22.0 [id number] 14:24:00* Test Item Value Reference Range Comments GLUBED (test code=GLUBED) 166 mg/dL 74-106 Performed by certified stretch press operator at [facility] - XR CHEST 1 [id number] 14:08:00 FAX: Jean Marmolejo MD [phone] [place]: B St: ADM FAX: Cassandra White MD [phone] Name: ZEESHAN [facility] : 1940 Age/S: 78/M [address] Unit #: [id number] [place] [address] Phys: Cassandra Lofton MD Acct: [id number] Dis Date: Status: ADM IN PHONE #: [phone] Exam Date: 01/26/2019 1310 FAX #: [phone] Reason: Respiratory Failure EXAMS: CPT CODE: [id number] XR CHEST 1 V 85710 HISTORY: Respiratory failure. COMPARISON: 2018. Tracheostomy tube is in good position. New bilateral patchy infiltrates. Small basilar effusions with subsegmental atelectasis. Cardiomegaly. IMPRESSION: Patchy new bilateral infiltrates with small bibasal effusions. at 1408 Reported and signed by: Ayan Candelaria M.D. CC: Jean Ernst MD; Cassandra Lofton MD Technologist: SHRUTI GARCIA RT(R) Trnscrd Date/Time/By: 01/26/2019 (2975) : By: [email or web address] Orig Print D/T: S: 01/26/2019 (3493) PAGE 1 Signed Report - XR ABDOMEN AP 1 [id number] 14:07:00 FAX: Jean Marmolejo MD [phone] [place]: St: [facility] FAX: Cassandra White MD [phone] Name: ZEESHAN JOHN III [facility] : 1940 Age/S: 78/M [address] Unit #: [id number] Loc: [place] [address] Phys: Cassandra Lofton MD Acct: [id number] Dis Date: Status: ADM IN PHONE #: [phone] Exam Date: 01/26/2019 1310 FAX #: [phone] Reason: Constipation EXAMS: CPT CODE: [id number] XR ABDOMEN AP 1 V 24339 HISTORY: Constipation. COMPARISON: Previous day. No bowel obstruction. Vascular calcifications. Nonspecific bowel gas pattern with mild distention of the small and large bowel loops. Barnett catheter. No pathologic calcifications. IMPRESSION: No bowel obstruction. Gastrostomy tube in the left upper quadrant. at 1407 Reported and signed by: Ayan Candelaria M.D. CC: Jean Ernst MD; Cassandra Lofton MD Technologist: SHRUTI PAVON(R) Trnscrd Date/Time/By: 01/26/2019 (3358) : By: [email or web address] Orig Print D/T: S: 01/26/2019 (1783) PAGE 1 Signed Report [id number] 10:41:00* Test Item Value Reference Range Comments GLUBED (test code=GLUBED) 114 mg/dL 74-106 Performed by certified stretch press operator at [facility] COMPREHENSIVE METABOLIC [id number] 10:25:00* Test Item Value Reference Range Comments SODIUM (test code=NA) 135 mmol/L 136-145 POTASSIUM (test code=K) 4.4 mmol/L 3.5-5.1 CHLORIDE (test code=CL) 100.0 mmol/L 98-107 CARBON DIOXIDE (test code=CO2) 30.0 mmol/L 21-32 ANION GAP (test code=GAP) 9.4 10-20 GLUCOSE (test code=GLU) 135 mg/dL 74-106 BLOOD UREA NITROGEN (test code=BUN) 75 mg/dL 7-18 GLOMERULAR FILTRATION RATE (test code=GFR) > 60 mL/min >=60 Estimated GFR by using Modified MDRD formula.Chronic kidney disease is defined as either kidney damageor GFR <60 mL/min/1.73 m2 for >3 months. CREATININE (test code=CREAT) 1.10 mg/dL 0.7-1.3 BUN/CREATININE RATIO (test code=BUN/CREA) 68.2 10-20 TOTAL PROTEIN (test code=PROT) 5.9 gram/dL 6.4-8.2 ALBUMIN (test code=ALB) 1.3 g/dL 3.4-5.0 GLOBULIN (test code=GLOB) 4.6 gram/dL 2.7-4.2 ALBUMIN/GLOBULIN RATIO (test code=A/G) 0.3 0.75-1.50 CALCIUM (test code=CA) 8.3 mg/dL 8.5-10.1 BILIRUBIN TOTAL (test code=BILT) 0.20 mg/dL 0.0-1.0 SGOT/AST (test code=AST) 49 IUnit/L 15-37 SGPT/ALT (test code=ALT) 51 IUnit/L 12-78 ALKALINE PHOSPHATASE TOTAL (test code=ALKP) 187 IUnit/L 45-117 Note change in reference range due to change in reagent. 01/26/19942.[id number] 10:25:00* Test Item Value Reference Range Comments MAGNESIUM (test code=MAG) 2.8 mg/dL 1.8-2.4 01/26/1944.URINALYSIS [id number] 09:29:00* Test Item Value Reference Range Comments UA COLOR (test code=COLU) Light-Yellow YELLOW UA APPEARANCE (test code=APPU) CLEAR CLEAR UA GLUCOSE DIPSTICK (test code=DGLUU) NEGATIVE mg/dL NEGATIVE UA BILIRUBIN DIPSTICK (test code=BILU) NEGATIVE mg/dL NEGATIVE UA KETONE DIPSTICK (test code=KETU) NEGATIVE mg/dL NEGATIVE UA SPECIFIC GRAVITY (test code=SGU) 1.016 1.001-1.035 UA BLOOD DIPSTICK (test code=JAIMEE) 0.2 mg/dL (2+) mg/dL NEGATIVE UA PH DIPSTICK (test code=FATOUMATA) 6.5 5.0-8.0 UA PROTEIN DIPSTICK (test code=PROU) 30 (1+) mg/dL NEGATIVE UA UROBILINIOGEN DIPSTICK (test code=URO) Normal mg/dL NEGATIVE UA NITRITE DIPSTICK (test code=ROSALIA) NEGATIVE NEGATIVE UA LEUKOCYTE ESTERASE W REFLEX (test code=LEUUR) NEGATIVE Omega/uL NEGATIVE UA WBC (test code=WBCU) 0-5 per HPF 0-5 UA RBC (test code=RBCU) 11-20 #/HPF 0-5 UA EPITHELIAL CELLS (test code=EPIU) FEW per HPF FEW UA BACTERIA (test code=BACU) FEW #/HPF NONE UA MUCUS (test code=MUCU) FEW #/LPF FEW UA AMORPHOUS SEDIMENT (test code=AMORU) FEW #/LPF CBC W/AUTO [id number] 08:21:00* Test Item Value Reference Range Comments WHITE BLOOD CELL (test code=WBC) 19.5 K/mm3 4.5-12.5 RED BLOOD CELL (test code=RBC) 2.26 mill/mm3 4.0-5.8 HEMOGLOBIN (test code=HGB) 6.5 gram/dL 13.0-17.5 HEMATOCRIT (test code=HCT) 22.9 % 42.0-52.0 RESULT VERIFIED BY REPEAT ANALYSIS MEAN CELL VOLUME (test code=MCV) 101.3 fL 80-98 MEAN CELL HGB (test code=MCH) 28.8 picogram 27.0-33.0 MEAN CELL HGB CONCETRATION (test code=MCHC) 28.4 gram/dL 33.0-36.0 RED CELL DISTRIBUTION WIDTH (test code=RDW) 16.2 % 11.6-16.2 RED CELL DISTRIBUTION WIDTH SD (test code=RDW-SD) 59.7 fL 37.0-51.0 PLATELET COUNT (test code=PLT) 442 K/mm3 150-450 RESULT VERIFIED BY REPEAT ANALYSIS MEAN PLATELET VOLUME (test code=MPV) 13.1 fL 6.7-11.0 NEUTROPHIL % (test code=NT%) 81.3 % 39.0-69.0 IMMATURE GRANULOCYTE % (test code=IG%) 1.3 % 0.0-5.0 LYMPHOCYTE % (test code=LY%) 6.9 % 25.0-55.0 MONOCYTE % (test code=MO%) 5.5 % 0.0-10.0 EOSINOPHIL % (test code=EO%) 4.8 % 0.0-5.0 BASOPHIL % (test code=BA%) 0.2 % 0.0-1.0 NUCLEATED RBC % (test code=NRBC%) 0.0 % 0-0 NEUTROPHIL # (test code=NT#) 15.89 K/mm3 1.8-7.7 IMMATURE GRANULOCYTE # (test code=IG#) 0.25 x10 3/uL 0-0.03 LYMPHOCYTE # (test code=LY#) 1.35 K/mm3 1.0-5.0 MONOCYTE # (test code=MO#) 1.08 K/mm3 0-0.8 EOSINOPHIL # (test code=EO#) 0.94 K/mm3 0.0-0.5 BASOPHIL # (test code=BA#) 0.03 K/mm3 0.0-0.2 NUCLEATED RBC # (test code=NRBC#) 0.00 K/mm3 0.0-0.1 MANUAL DIFF REQUIRED (test code=MDIFF) NO, ONLY SCAN NEEDED DIFFERENTIAL [id number] 08:21:00* Test Item Value Reference Range Comments STAIN ACCEPTABILITY (test code=STN ACCEPTABLE) STAIN ACCEPTABLE POLYCHROMASIA (test code=POLC) 3+ POIKILOCYTOSIS (test code=POIK) 1+ ANISOCYTOSIS (test code=ANISO) 3+ MACROCYTOSIS (test code=MACR) 3+ PLATELET ESTIMATE (test code=PLTEST) ADEQUATE PLATELET MORPHOLOGY (test code=PLTMORPH) NORMAL CBC W/AUTO [id number] 07:17:00* Test Item Value Reference Range Comments WHITE BLOOD CELL (test code=WBC) 19.5 K/mm3 4.5-12.5 RED BLOOD CELL (test code=RBC) 2.26 mill/mm3 4.0-5.8 HEMOGLOBIN (test code=HGB) 6.5 gram/dL 13.0-17.5 HEMATOCRIT (test code=HCT) 22.9 % 42.0-52.0 RESULT VERIFIED BY REPEAT ANALYSIS MEAN CELL VOLUME (test code=MCV) 101.3 fL 80-98 MEAN CELL HGB (test code=MCH) 28.8 picogram 27.0-33.0 MEAN CELL HGB CONCETRATION (test code=MCHC) 28.4 gram/dL 33.0-36.0 RED CELL DISTRIBUTION WIDTH (test code=RDW) 16.2 % 11.6-16.2 RED CELL DISTRIBUTION WIDTH SD (test code=RDW-SD) 59.7 fL 37.0-51.0 PLATELET COUNT (test code=PLT) 442 K/mm3 150-450 RESULT VERIFIED BY REPEAT ANALYSIS MEAN PLATELET VOLUME (test code=MPV) 13.1 fL 6.7-11.0 NEUTROPHIL % (test code=NT%) 81.3 % 39.0-69.0 IMMATURE GRANULOCYTE % (test code=IG%) 1.3 % 0.0-5.0 LYMPHOCYTE % (test code=LY%) 6.9 % 25.0-55.0 MONOCYTE % (test code=MO%) 5.5 % 0.0-10.0 EOSINOPHIL % (test code=EO%) 4.8 % 0.0-5.0 BASOPHIL % (test code=BA%) 0.2 % 0.0-1.0 NUCLEATED RBC % (test code=NRBC%) 0.0 % 0-0 NEUTROPHIL # (test code=NT#) 15.89 K/mm3 1.8-7.7 IMMATURE GRANULOCYTE # (test code=IG#) 0.25 x10 3/uL 0-0.03 LYMPHOCYTE # (test code=LY#) 1.35 K/mm3 1.0-5.0 MONOCYTE # (test code=MO#) 1.08 K/mm3 0-0.8 EOSINOPHIL # (test code=EO#) 0.94 K/mm3 0.0-0.5 BASOPHIL # (test code=BA#) 0.03 K/mm3 0.0-0.2 NUCLEATED RBC # (test code=NRBC#) 0.00 K/mm3 0.0-0.1 MANUAL DIFF REQUIRED (test code=MDIFF) NO, ONLY SCAN NEEDED DIFFERENTIAL [id number] 07:17:00* Test Item Value Reference Range Comments STAIN ACCEPTABILITY (test code=STN ACCEPTABLE) CABOT RINGS (test code=CAB) MORPHOLOGY COMMENT (test code=MOC) PLATELET ESTIMATE (test code=PLTEST) PLATELET MORPHOLOGY (test code=PLTMORPH) CBC W/AUTO [id number] 07:17:00* Test Item Value Reference Range Comments WHITE BLOOD CELL (test code=WBC) 19.5 K/mm3 4.5-12.5 RED BLOOD CELL (test code=RBC) 2.26 mill/mm3 4.0-5.8 HEMOGLOBIN (test code=HGB) 6.5 gram/dL 13.0-17.5 HEMATOCRIT (test code=HCT) 22.9 % 42.0-52.0 RESULT VERIFIED BY REPEAT ANALYSIS MEAN CELL VOLUME (test code=MCV) 101.3 fL 80-98 MEAN CELL HGB (test code=MCH) 28.8 picogram 27.0-33.0 MEAN CELL HGB CONCETRATION (test code=MCHC) 28.4 gram/dL 33.0-36.0 RED CELL DISTRIBUTION WIDTH (test code=RDW) 16.2 % 11.6-16.2 RED CELL DISTRIBUTION WIDTH SD (test code=RDW-SD) 59.7 fL 37.0-51.0 PLATELET COUNT (test code=PLT) 442 K/mm3 150-450 RESULT VERIFIED BY REPEAT ANALYSIS MEAN PLATELET VOLUME (test code=MPV) 13.1 fL 6.7-11.0 NEUTROPHIL % (test code=NT%) 81.3 % 39.0-69.0 IMMATURE GRANULOCYTE % (test code=IG%) 1.3 % 0.0-5.0 LYMPHOCYTE % (test code=LY%) 6.9 % 25.0-55.0 MONOCYTE % (test code=MO%) 5.5 % 0.0-10.0 EOSINOPHIL % (test code=EO%) 4.8 % 0.0-5.0 BASOPHIL % (test code=BA%) 0.2 % 0.0-1.0 NUCLEATED RBC % (test code=NRBC%) 0.0 % 0-0 NEUTROPHIL # (test code=NT#) 15.89 K/mm3 1.8-7.7 IMMATURE GRANULOCYTE # (test code=IG#) 0.25 x10 3/uL 0-0.03 LYMPHOCYTE # (test code=LY#) 1.35 K/mm3 1.0-5.0 MONOCYTE # (test code=MO#) 1.08 K/mm3 0-0.8 EOSINOPHIL # (test code=EO#) 0.94 K/mm3 0.0-0.5 BASOPHIL # (test code=BA#) 0.03 K/mm3 0.0-0.2 NUCLEATED RBC # (test code=NRBC#) 0.00 K/mm3 0.0-0.1 MANUAL DIFF REQUIRED (test code=MDIFF) NO, ONLY SCAN NEEDED DIFFERENTIAL [id number] 07:17:00* Test Item Value Reference Range Comments STAIN ACCEPTABILITY (test code=STN ACCEPTABLE) CABOT RINGS (test code=CAB) MORPHOLOGY COMMENT (test code=MOC) PLATELET ESTIMATE (test code=PLTEST) PLATELET MORPHOLOGY (test code=PLTMORPH) CBC W/AUTO [id number] 07:17:00* Test Item Value Reference Range Comments WHITE BLOOD CELL (test code=WBC) 19.5 K/mm3 4.5-12.5 RED BLOOD CELL (test code=RBC) 2.26 mill/mm3 4.0-5.8 HEMOGLOBIN (test code=HGB) 6.5 gram/dL 13.0-17.5 HEMATOCRIT (test code=HCT) 22.9 % 42.0-52.0 RESULT VERIFIED BY REPEAT ANALYSIS MEAN CELL VOLUME (test code=MCV) 101.3 fL 80-98 MEAN CELL HGB (test code=MCH) 28.8 picogram 27.0-33.0 MEAN CELL HGB CONCETRATION (test code=MCHC) 28.4 gram/dL 33.0-36.0 RED CELL DISTRIBUTION WIDTH (test code=RDW) 16.2 % 11.6-16.2 RED CELL DISTRIBUTION WIDTH SD (test code=RDW-SD) 59.7 fL 37.0-51.0 PLATELET COUNT (test code=PLT) 442 K/mm3 150-450 RESULT VERIFIED BY REPEAT ANALYSIS MEAN PLATELET VOLUME (test code=MPV) 13.1 fL 6.7-11.0 NEUTROPHIL % (test code=NT%) 81.3 % 39.0-69.0 IMMATURE GRANULOCYTE % (test code=IG%) 1.3 % 0.0-5.0 LYMPHOCYTE % (test code=LY%) 6.9 % 25.0-55.0 MONOCYTE % (test code=MO%) 5.5 % 0.0-10.0 EOSINOPHIL % (test code=EO%) 4.8 % 0.0-5.0 BASOPHIL % (test code=BA%) 0.2 % 0.0-1.0 NUCLEATED RBC % (test code=NRBC%) 0.0 % 0-0 NEUTROPHIL # (test code=NT#) 15.89 K/mm3 1.8-7.7 IMMATURE GRANULOCYTE # (test code=IG#) 0.25 x10 3/uL 0-0.03 LYMPHOCYTE # (test code=LY#) 1.35 K/mm3 1.0-5.0 MONOCYTE # (test code=MO#) 1.08 K/mm3 0-0.8 EOSINOPHIL # (test code=EO#) 0.94 K/mm3 0.0-0.5 BASOPHIL # (test code=BA#) 0.03 K/mm3 0.0-0.2 NUCLEATED RBC # (test code=NRBC#) 0.00 K/mm3 0.0-0.1 MANUAL DIFF REQUIRED (test code=MDIFF) NO, ONLY SCAN NEEDED DIFFERENTIAL [id number] 07:17:00* Test Item Value Reference Range Comments STAIN ACCEPTABILITY (test code=STN ACCEPTABLE) MORPHOLOGY COMMENT (test code=MOC) PLATELET ESTIMATE (test code=PLTEST) PLATELET MORPHOLOGY (test code=PLTMORPH) CBC W/AUTO [id number] 07:17:00* Test Item Value Reference Range Comments WHITE BLOOD CELL (test code=WBC) 19.5 K/mm3 4.5-12.5 RED BLOOD CELL (test code=RBC) 2.26 mill/mm3 4.0-5.8 HEMOGLOBIN (test code=HGB) 6.5 gram/dL 13.0-17.5 HEMATOCRIT (test code=HCT) 22.9 % 42.0-52.0 RESULT VERIFIED BY REPEAT ANALYSIS MEAN CELL VOLUME (test code=MCV) 101.3 fL 80-98 MEAN CELL HGB (test code=MCH) 28.8 picogram 27.0-33.0 MEAN CELL HGB CONCETRATION (test code=MCHC) 28.4 gram/dL 33.0-36.0 RED CELL DISTRIBUTION WIDTH (test code=RDW) 16.2 % 11.6-16.2 RED CELL DISTRIBUTION WIDTH SD (test code=RDW-SD) 59.7 fL 37.0-51.0 PLATELET COUNT (test code=PLT) 442 K/mm3 150-450 RESULT VERIFIED BY REPEAT ANALYSIS MEAN PLATELET VOLUME (test code=MPV) 13.1 fL 6.7-11.0 NEUTROPHIL % (test code=NT%) 81.3 % 39.0-69.0 IMMATURE GRANULOCYTE % (test code=IG%) 1.3 % 0.0-5.0 LYMPHOCYTE % (test code=LY%) 6.9 % 25.0-55.0 MONOCYTE % (test code=MO%) 5.5 % 0.0-10.0 EOSINOPHIL % (test code=EO%) 4.8 % 0.0-5.0 BASOPHIL % (test code=BA%) 0.2 % 0.0-1.0 NUCLEATED RBC % (test code=NRBC%) 0.0 % 0-0 NEUTROPHIL # (test code=NT#) 15.89 K/mm3 1.8-7.7 IMMATURE GRANULOCYTE # (test code=IG#) 0.25 x10 3/uL 0-0.03 LYMPHOCYTE # (test code=LY#) 1.35 K/mm3 1.0-5.0 MONOCYTE # (test code=MO#) 1.08 K/mm3 0-0.8 EOSINOPHIL # (test code=EO#) 0.94 K/mm3 0.0-0.5 BASOPHIL # (test code=BA#) 0.03 K/mm3 0.0-0.2 NUCLEATED RBC # (test code=NRBC#) 0.00 K/mm3 0.0-0.1 MANUAL DIFF REQUIRED (test code=MDIFF) NO, ONLY SCAN NEEDED DIFFERENTIAL [id number] 07:17:00* Test Item Value Reference Range Comments STAIN ACCEPTABILITY (test code=STN ACCEPTABLE) CABOT RINGS (test code=CAB) MORPHOLOGY COMMENT (test code=MOC) PLATELET ESTIMATE (test code=PLTEST) PLATELET MORPHOLOGY (test code=PLTMORPH) COMPREHENSIVE METABOLIC [id number] 06:34:00* Test Item Value Reference Range Comments SODIUM (test code=NA) 135 mmol/L 136-145 POTASSIUM (test code=K) 4.4 mmol/L 3.5-5.1 CHLORIDE (test code=CL) 100.0 mmol/L 98-107 CARBON DIOXIDE (test code=CO2) 30.0 mmol/L 21-32 ANION GAP (test code=GAP) 9.4 10-20 GLUCOSE (test code=GLU) 135 mg/dL 74-106 BLOOD UREA NITROGEN (test code=BUN) 75 mg/dL 7-18 GLOMERULAR FILTRATION RATE (test code=GFR) > 60 mL/min >=60 Estimated GFR by using Modified MDRD formula.Chronic kidney disease is defined as either kidney damageor GFR <60 mL/min/1.73 m2 for >3 months. CREATININE (test code=CREAT) 1.10 mg/dL 0.7-1.3 BUN/CREATININE RATIO (test code=BUN/CREA) 68.2 10-20 TOTAL PROTEIN (test code=PROT) 5.9 gram/dL 6.4-8.2 ALBUMIN (test code=ALB) g/dL 3.4-5.0 GLOBULIN (test code=GLOB) gram/dL 2.7-4.2 ALBUMIN/GLOBULIN RATIO (test code=A/G) 0.75-1.50 CALCIUM (test code=CA) 8.3 mg/dL 8.5-10.1 BILIRUBIN TOTAL (test code=BILT) 0.20 mg/dL 0.0-1.0 SGOT/AST (test code=AST) 49 IUnit/L 15-37 SGPT/ALT (test code=ALT) 51 IUnit/L 12-78 ALKALINE PHOSPHATASE TOTAL (test code=ALKP) 187 IUnit/L 45-117 Note change in reference range due to change in reagent. [id number] 06:34:00* Test Item Value Reference Range Comments MAGNESIUM (test code=MAG) 2.8 mg/dL 1.8-2.4 COMPREHENSIVE METABOLIC [id number] 06:26:00* Test Item Value Reference Range Comments SODIUM (test code=NA) 135 mmol/L 136-145 POTASSIUM (test code=K) 4.4 mmol/L 3.5-5.1 CHLORIDE (test code=CL) 100.0 mmol/L 98-107 CARBON DIOXIDE (test code=CO2) mmol/L 21-32 ANION GAP (test code=GAP) 10-20 GLUCOSE (test code=GLU) mg/dL 74-106 BLOOD UREA NITROGEN (test code=BUN) mg/dL 7-18 GLOMERULAR FILTRATION RATE (test code=GFR) mL/min >=60 CREATININE (test code=CREAT) mg/dL 0.7-1.3 BUN/CREATININE RATIO (test code=BUN/CREA) 10-20 TOTAL PROTEIN (test code=PROT) gram/dL 6.4-8.2 ALBUMIN (test code=ALB) g/dL 3.4-5.0 GLOBULIN (test code=GLOB) gram/dL 2.7-4.2 ALBUMIN/GLOBULIN RATIO (test code=A/G) 0.75-1.50 CALCIUM (test code=CA) mg/dL 8.5-10.1 BILIRUBIN TOTAL (test code=BILT) mg/dL 0.0-1.0 SGOT/AST (test code=AST) IUnit/L 15-37 SGPT/ALT (test code=ALT) IUnit/L 12-78 ALKALINE PHOSPHATASE TOTAL (test code=ALKP) IUnit/L 45-117 [id number] 06:26:00* Test Item Value Reference Range Comments MAGNESIUM (test code=MAG) mg/dL 1.8-2.4 [id number] 06:06:00* Test Item Value Reference Range Comments GLUBED (test code=GLUBED) 136 mg/dL 74-106 Performed by certified stretch press operator at [facility] [id number] 02:18:00* Test Item Value Reference Range Comments GLUBED (test code=GLUBED) 160 mg/dL 74-106 Performed by certified stretch press operator at [facility] [id number] 22:21:00* Test Item Value Reference Range Comments GLUBED (test code=GLUBED) 224 mg/dL 74-106 Performed by certified stretch press operator at [facility] [id number] 20:44:00* Test Item Value Reference Range Comments GLUBED (test code=GLUBED) 242 mg/dL 74-106 Performed by certified stretch press operator at [facility] [id number] 18:21:00* Test Item Value Reference Range Comments GLUBED (test code=GLUBED) 293 mg/dL 74-106 Performed by certified stretch press operator at [facility] [id number] 16:22:00* Test Item Value Reference Range Comments GLUBED (test code=GLUBED) 352 mg/dL 74-106 Performed by certified stretch press operator at [facility] [id number] 12:34:00* Test Item Value Reference Range Comments GLUBED (test code=GLUBED) 288 mg/dL 74-106 Performed by certified stretch press operator at [facility] [id number] 12:07:00* Test Item Value Reference Range Comments GLUBED (test code=GLUBED) 274 mg/dL 74-106 Performed by certified stretch press operator at [facility] - XR ABDOMEN AP 1 [id number] 11:28:00 FAX: Jean Marmolejo MD [phone] [place]: St: ADM FAX: Cassandra White MD [phone] Name: ZEESHAN JOHN [facility] : 1940 Age/S: 78/M [address] [facility] Unit #: [id number] Loc: [address] [address] Phys: Cassandra Lofton MD Acct: [id number] Dis Date: Status: ADM IN PHONE #: [phone] Exam Date: 01/25/2019 1040 FAX #: [phone] Reason: constipation EXAMS: CPT CODE: [id number] XR ABDOMEN AP 1 V 02445 HISTORY: UTI and constipation. COMPARISON: January 21, 2019. Single view chest: Tracheostomy tube is uncha nged in position. No acute infiltrates, effusion or congestion is noted. Basal dependent changes. Cardiomegaly. IMPRESSION: No acute infiltrates, effusion or congestion. Single view abdomen: IVC filter towards the right of the midline at L2-L3 level. No bowel obstruction. Nonspecific bowel gas pattern. No pathologic calcifications. Catheter in the lower pelvis in the midline. Exact location is not clear. DJD of the lumbar spine. IMPRESSION: No bowel obstruction. at 1128 Reported and signed by: Ayan Candelaria M.D. CC: Kenya Ernst MD; Cassandra Lofton MD Technologist: Daniel PAVON(R) Trnscrd Date/Time/By: 01/25/2019 (1128) : By: [email or web address] Orig Print D/T: S: 01/25/2019 (5725) PAGE 1 Signed Report - XR CHEST 1 [id number] 11:28:00 FAX: Jean Marmolejo MD [phone] [place]: St: ADM FAX: Cassandra White MD [phone] Name: ZEESHAN JOHN [facility] : 1940 Age/S: 78/M [address] [facility] Unit #: [id number] Loc: [address] [address] Phys: Cassandra Lofton MD Acct: [id number] Dis Date: Status: ADM IN PHONE #: [phone] Exam Date: 01/25/2019 1040 FAX #: [phone] Reason: respiratory EXAMS: CPT CODE: [id number] XR CHEST 1 V 02391 HISTORY: UTI and constipation. COMPARISON: January 21, 2019. Single view chest: Tracheostomy tube is unchanged in position. No acute infiltrates, effusion or congestion is noted. Basal dependent changes. Cardiomegaly. IMPRESSION: No acute infiltrates, effusion or congestion. Single view abdomen: IVC filter towards the right of the midline at L2-L3 level. No bowel obstruction. Nonspecific bowel gas pattern. No pathologic calcifications. Catheter in the lower pelvis in the midline. Exact location is not clear. DJD of the lumbar spine. IMPRESSION: No bowel obstruction. at 1128 Reported and signed by: Ayan Candelaria M.D. CC: Jean Ernst MD; Cassandra Lofton MD Technologist: Daniel Oakley RT(R) Trnscrd Date/Time/By: 01/25/2019 (1128) : By: [email or web address] Orig Print D/T: S: 01/25/2019 (113) PAGE 1 Signed Report ARTERIAL BLOOD [id number] 09:14:00* Test Item Value Reference Range Comments ARTERIAL BLOOD GAS PH (test code=PHA) 7.52 7.35-7.45 ARTERIAL BLOOD GAS PCO2 (test code=PCO2A) 41.4 mm Hg 35-45 ARTERIAL BLOOD GAS PO2 (test code=PO2A) 142.4 mmHg 80-100 BICARBONATE TOTAL HCO3 (test code=HCO3) 33.4 mmol/L 23.0-27.0 BASE EXCESS (test code=BENSON) 9.7 mmol/L -3.0-5.0 Results called to and read back by Harshal 09:13 - 01/25/2019; by DOM ABG O2 SATURATION (test code=SATA) 98.5 % 90.0-98.0 ABG TYPE (test code=TYPEA) Arterial FIO2 (test code=FIO2A) 40.0 ABG VENT MODE (test code=MODEA) Assist Control ABG VENT RESP RATE (test code=RRA) 12.0 per min ABG TIDAL VOLUME (test code=TVA) 450.0 mL ABG PEEP (test code=PEEPA) 5.0 cmH2O ABG SITE (test code=SITEA) Rt RADIAL ARTERY MODIFIED ALLENS (test code=MODALL) Yes CHECK PERFORMED SODIUM (test code=NA/ABG) 134.1 mEq/L 135-148 POTASSIUM (test code=K/ABG) 4.0 mEq/L 3.5-4.5 CHLORIDE (test code=CL/ABG) 97 mEq/L 98-106 GLUCOSE (test code=GLU/ABG) 275 mg/dL 74-99 HEMATOCRIT (test code=HCT/ABG) 26 % 42-52 IONIZED CALCIUM (test code=CAIABG) 1.09 mmol/L 1.1-1.37 TOTAL HGB (test code=THB) 8.8 gram/dL 13.0-17.5 HGB O2 SAT (test code=HBOSAT) 97.8 % 94.00-98.00 CARBOXYHEMOGLOBIN (test code=HOHGBT) 0.3 %totalHg 0.5-1.5 Results called to and read back by Harshal 09:13 - 01/25/2019; by DOM METHEMOGLOBIN (test code=METHGB) 0.4 % 0.0-1.50 O2 CONTENT (test code=O2CT) 12.4 % vol 18.0-22.0 BASIC METABOLIC [id number] 07:20:00* Test Item Value Reference Range Comments SODIUM (test code=NA) 138 mmol/L 136-145 RESULT VERIFIED BY REPEAT ANALYSIS POTASSIUM (test code=K) 4.9 mmol/L 3.5-5.1 CHLORIDE (test code=CL) 99.0 mmol/L 98-107 CARBON DIOXIDE (test code=CO2) 33.0 mmol/L 21-32 ANION GAP (test code=GAP) 10.9 10-20 GLUCOSE (test code=GLU) 244 mg/dL 74-106 BLOOD UREA NITROGEN (test code=BUN) 90 mg/dL 7-18 GLOMERULAR FILTRATION RATE (test code=GFR) 58 mL/min >=60 Estimated GFR by using Modified MDRD formula.Chronic kidney disease is defined as either kidney damageor GFR <60 mL/min/1.73 m2 for >3 months. CREATININE (test code=CREAT) 1.20 mg/dL 0.7-1.3 BUN/CREATININE RATIO (test code=BUN/CREA) 75.0 10-20 CALCIUM (test code=CA) 8.1 mg/dL 8.5-10.1 [id number] 07:20:00* Test Item Value Reference Range Comments MAGNESIUM (test code=MAG) 2.9 mg/dL 1.8-2.4 CBC W/O [id number] 06:51:00* Test Item Value Reference Range Comments WHITE BLOOD CELL (test code=WBC) 17.0 K/mm3 4.5-12.5 RED BLOOD CELL (test code=RBC) 2.59 mill/mm3 4.0-5.8 HEMOGLOBIN (test code=HGB) 7.4 gram/dL 13.0-17.5 HEMATOCRIT (test code=HCT) 25.5 % 42.0-52.0 MEAN CELL VOLUME (test code=MCV) 98.5 fL 80-98 MEAN CELL HGB (test code=MCH) 28.6 picogram 27.0-33.0 MEAN CELL HGB CONCETRATION (test code=MCHC) 29.0 gram/dL 33.0-36.0 RED CELL DISTRIBUTION WIDTH (test code=RDW) 16.4 % 11.6-16.2 PLATELET COUNT (test code=PLT) 311 K/mm3 150-450 MEAN PLATELET VOLUME (test code=MPV) 13.4 fL 6.7-11.0 [id number] 03:09:00* Test Item Value Reference Range Comments GLUBED (test code=GLUBED) 232 mg/dL 74-106 Performed by certified stretch press operator at [facility] [id number] 23:59:00* Test Item Value Reference Range Comments GLUBED (test code=GLUBED) 216 mg/dL 74-106 Performed by certified stretch press operator at [facility] [id number] 22:00:00* Test Item Value Reference Range Comments GLUBED (test code=GLUBED) 230 mg/dL 74-106 Performed by certified stretch press operator at [facility] [id number] 19:12:00* Test Item Value Reference Range Comments GLUBED (test code=GLUBED) 222 mg/dL 74-106 Performed by certified stretch press operator at [facility] [id number] 18:16:00* Test Item Value Reference Range Comments GLUBED (test code=GLUBED) 229 mg/dL 74-106 Performed by certified stretch press operator at [facility] [id number] 13:16:00* Test Item Value Reference Range Comments GLUBED (test code=GLUBED) 217 mg/dL 74-106 Performed by certified stretch press operator at [facility] [id number] 13:16:00* Test Item Value Reference Range Comments GLUBED (test code=GLUBED) 254 mg/dL 74-106 Performed by certified stretch press operator at [facility] [id number] 13:16:00* Test Item Value Reference Range Comments GLUBED (test code=GLUBED) 303 mg/dL 74-106 Performed by certified stretch press operator at [facility] [id number] 13:16:00* Test Item Value Reference Range Comments GLUBED (test code=GLUBED) 307 mg/dL 74-106 Performed by certified stretch press operator at [facility] BASIC METABOLIC [id number] 07:12:00* Test Item Value Reference Range Comments SODIUM (test code=NA) 146 mmol/L 136-145 POTASSIUM (test code=K) 3.6 mmol/L 3.5-5.1 CHLORIDE (test code=CL) 105.0 mmol/L 98-107 CARBON DIOXIDE (test code=CO2) 35.0 mmol/L 21-32 ANION GAP (test code=GAP) 9.6 10-20 GLUCOSE (test code=GLU) 318 mg/dL 74-106 BLOOD UREA NITROGEN (test code=BUN) 113 mg/dL 7-18 GLOMERULAR FILTRATION RATE (test code=GFR) 58 mL/min >=60 Estimated GFR by using Modified MDRD formula.Chronic kidney disease is defined as either kidney damageor GFR <60 mL/min/1.73 m2 for >3 months. CREATININE (test code=CREAT) 1.20 mg/dL 0.7-1.3 BUN/CREATININE RATIO (test code=BUN/CREA) 94.2 10-20 CALCIUM (test code=CA) 8.4 mg/dL 8.5-10.1 [id number] 07:12:00* Test Item Value Reference Range Comments MAGNESIUM (test code=MAG) 3.2 mg/dL 1.8-2.4 CBC W/O [id number] 06:52:00* Test Item Value Reference Range Comments WHITE BLOOD CELL (test code=WBC) 15.8 K/mm3 4.5-12.5 RED BLOOD CELL (test code=RBC) 2.48 mill/mm3 4.0-5.8 HEMOGLOBIN (test code=HGB) 7.2 gram/dL 13.0-17.5 HEMATOCRIT (test code=HCT) 24.6 % 42.0-52.0 MEAN CELL VOLUME (test code=MCV) 99.2 fL 80-98 MEAN CELL HGB (test code=MCH) 29.0 picogram 27.0-33.0 MEAN CELL HGB CONCETRATION (test code=MCHC) 29.3 gram/dL 33.0-36.0 RED CELL DISTRIBUTION WIDTH (test code=RDW) 17.1 % 11.6-16.2 PLATELET COUNT (test code=PLT) 302 K/mm3 150-450 MEAN PLATELET VOLUME (test code=MPV) 13.6 fL 6.7-11.0 [id number] 05:23:00* Test Item Value Reference Range Comments GLUBED (test code=GLUBED) 298 mg/dL 74-106 Performed by certified stretch press operator at [facility] [id number] 05:15:00* Test Item Value Reference Range Comments GLUBED (test code=GLUBED) 299 mg/dL 74-106 Performed by certified stretch press operator at [facility] [id number] 05:08:00* Test Item Value Reference Range Comments GLUBED (test code=GLUBED) 283 mg/dL 74-106 Performed by certified stretch press operator at [facility] [id number] 00:52:00* Test Item Value Reference Range Comments SODIUM (test code=NA) 147 mmol/L 136-145 RESULT VERIFIED BY REPEAT ANALYSIS SPECIMEN COMMENTS: CALL 2700 IF ISSUES WITH [id number] 16:08:00* Test Item Value Reference Range Comments GLUBED (test code=GLUBED) 334 mg/dL 74-106 Performed by certified stretch press operator at [facility] [id number] 13:22:00* Test Item Value Reference Range Comments GLUBED (test code=GLUBED) 292 mg/dL 74-106 Performed by certified stretch press operator at [facility] AB [id number] 07:55:00* Test Item Value Reference Range Comments AB TREPONEMA (test code=TREPAB) Nonreactive Index NonReactive [id number] 07:54:00* Test Item Value Reference Range Comments GLUBED (test code=GLUBED) 309 mg/dL 74-106 Performed by certified stretch press operator at [facility] [id number] 07:54:00* Test Item Value Reference Range Comments GLUBED (test code=GLUBED) 283 mg/dL 74-106 Performed by certified stretch press operator at [facility] BASIC METABOLIC [id number] 07:50:00* Test Item Value Reference Range Comments SODIUM (test code=NA) 153 mmol/L 136-145 POTASSIUM (test code=K) 3.6 mmol/L 3.5-5.1 CHLORIDE (test code=CL) 111.0 mmol/L 98-107 CARBON DIOXIDE (test code=CO2) 38.0 mmol/L 21-32 ANION GAP (test code=GAP) 7.6 10-20 GLUCOSE (test code=GLU) 294 mg/dL 74-106 BLOOD UREA NITROGEN (test code=BUN) 135 mg/dL 7-18 GLOMERULAR FILTRATION RATE (test code=GFR) 42 mL/min >=60 Estimated GFR by using Modified MDRD formula.Chronic kidney disease is defined as either kidney damageor GFR <60 mL/min/1.73 m2 for >3 months. CREATININE (test code=CREAT) 1.60 mg/dL 0.7-1.3 BUN/CREATININE RATIO (test code=BUN/CREA) 84.4 10-20 CALCIUM (test code=CA) 9.1 mg/dL 8.5-10.1 [id number] 07:50:00* Test Item Value Reference Range Comments MAGNESIUM (test code=MAG) 3.5 mg/dL 1.8-2.4 VITAMIN [id number] 07:50:00* Test Item Value Reference Range Comments VITAMIN B12 (test code=VITB12) 760 pg/mL 193-986 FOLIC [id number] 07:50:00* Test Item Value Reference Range Comments FOLIC ACID (test code=FOL) 13.1 ng/mL 3.10-17.50 BASIC METABOLIC [id number] 07:03:00* Test Item Value Reference Range Comments SODIUM (test code=NA) 153 mmol/L 136-145 POTASSIUM (test code=K) 3.6 mmol/L 3.5-5.1 CHLORIDE (test code=CL) 111.0 mmol/L 98-107 CARBON DIOXIDE (test code=CO2) mmol/L 21-32 ANION GAP (test code=GAP) 10-20 GLUCOSE (test code=GLU) mg/dL 74-106 BLOOD UREA NITROGEN (test code=BUN) mg/dL 7-18 GLOMERULAR FILTRATION RATE (test code=GFR) mL/min >=60 CREATININE (test code=CREAT) mg/dL 0.7-1.3 BUN/CREATININE RATIO (test code=BUN/CREA) 10-20 CALCIUM (test code=CA) mg/dL 8.5-10.1 [id number] 07:03:00* Test Item Value Reference Range Comments MAGNESIUM (test code=MAG) mg/dL 1.8-2.4 VITAMIN [id number] 07:03:00* Test Item Value Reference Range Comments VITAMIN B12 (test code=VITB12) pg/mL 193-986 FOLIC [id number] 07:03:00* Test Item Value Reference Range Comments FOLIC ACID (test code=FOL) ng/mL 3.10-17.50 CBC W/O [id number] 06:58:00* Test Item Value Reference Range Comments WHITE BLOOD CELL (test code=WBC) 19.5 K/mm3 4.5-12.5 RED BLOOD CELL (test code=RBC) 2.66 mill/mm3 4.0-5.8 HEMOGLOBIN (test code=HGB) 7.6 gram/dL 13.0-17.5 HEMATOCRIT (test code=HCT) 26.8 % 42.0-52.0 MEAN CELL VOLUME (test code=MCV) 100.8 fL 80-98 MEAN CELL HGB (test code=MCH) 28.6 picogram 27.0-33.0 MEAN CELL HGB CONCETRATION (test code=MCHC) 28.4 gram/dL 33.0-36.0 RED CELL DISTRIBUTION WIDTH (test code=RDW) 18.2 % 11.6-16.2 PLATELET COUNT (test code=PLT) 295 K/mm3 150-450 MEAN PLATELET VOLUME (test code=MPV) 13.6 fL 6.7-11.0 [id number] 02:39:00* Test Item Value Reference Range Comments GLUBED (test code=GLUBED) 239 mg/dL 74-106 Performed by certified stretch press operator at [facility] [id number] 00:35:00* Test Item Value Reference Range Comments GLUBED (test code=GLUBED) 277 mg/dL 74-106 Performed by certified stretch press operator at [facility] [id number] 00:35:00* Test Item Value Reference Range Comments GLUBED (test code=GLUBED) 279 mg/dL 74-106 Performed by certified stretch press operator at [facility] [id number] 00:35:00* Test Item Value Reference Range Comments GLUBED (test code=GLUBED) 287 mg/dL 74-106 Performed by certified stretch press operator at [facility] T4 [id number] 18:25:00* Test Item Value Reference Range Comments T4 FREE (test code=T4F) 1.08 ng/dL 0.76-1.46 THYROID STIMULATING [id number] 18:25:00* Test Item Value Reference Range Comments THYROID STIMULATING HORMONE (test code=TSH) 0.483 uIU/mL 0.36-3.74 TSH REFERENCE RANGES: EUTHYROID: 0.35 - 4.3 mIU/mL HYPO : > 5.5 mIU/mL HYPER : < 0.35 mIU/mL [id number] 17:57:00* Test Item Value Reference Range Comments GLYCOSYLATED HEMOGLOBIN (HA1C) (test code=GLYHGB) 7.0 % HbA1 4.8-6.0 ESTIMATED AVERAGE GLUCOSE (test code=EAG) 154 MG/DL [id number] 16:19:00* Test Item Value Reference Range Comments GLUBED (test code=GLUBED) 361 mg/dL 74-106 Performed by certified stretch press operator at [facility] [id number] 12:03:00* Test Item Value Reference Range Comments GLUBED (test code=GLUBED) 309 mg/dL 74-106 Performed by certified stretch press operator at [facility] [id number] 08:13:00* Test Item Value Reference Range Comments GLUBED (test code=GLUBED) 256 mg/dL 74-106 Performed by certified stretch press operator at [facility] BASIC METABOLIC [id number] 04:54:00* Test Item Value Reference Range Comments SODIUM (test code=NA) 156 mmol/L 136-145 Results called to [email or web address] by [email or web address] 01/22/19 0454Critical results verified and read back by Nurse? Y POTASSIUM (test code=K) 3.5 mmol/L 3.5-5.1 CHLORIDE (test code=CL) 115.0 mmol/L 98-107 CARBON DIOXIDE (test code=CO2) 41.0 mmol/L 21-32 ANION GAP (test code=GAP) 3.5 10-20 GLUCOSE (test code=GLU) 217 mg/dL 74-106 BLOOD UREA NITROGEN (test code=BUN) 153 mg/dL 7-18 GLOMERULAR FILTRATION RATE (test code=GFR) 37 mL/min >=60 Estimated GFR by using Modified MDRD formula.Chronic kidney disease is defined as either kidney damageor GFR <60 mL/min/1.73 m2 for >3 months. CREATININE (test code=CREAT) 1.80 mg/dL 0.7-1.3 BUN/CREATININE RATIO (test code=BUN/CREA) 85.0 10-20 CALCIUM (test code=CA) 9.2 mg/dL 8.5-10.1 [id number] 04:54:00* Test Item Value Reference Range Comments MAGNESIUM (test code=MAG) 3.6 mg/dL 1.8-2.4 CBC W/O [id number] 04:21:00* Test Item Value Reference Range Comments WHITE BLOOD CELL (test code=WBC) 26.2 K/mm3 4.5-12.5 RED BLOOD CELL (test code=RBC) 2.20 mill/mm3 4.0-5.8 HEMOGLOBIN (test code=HGB) 6.7 gram/dL 13.0-17.5 HEMATOCRIT (test code=HCT) 23.2 % 42.0-52.0 MEAN CELL VOLUME (test code=MCV) 105.5 fL 80-98 MEAN CELL HGB (test code=MCH) 30.5 picogram 27.0-33.0 MEAN CELL HGB CONCETRATION (test code=MCHC) 28.9 gram/dL 33.0-36.0 RED CELL DISTRIBUTION WIDTH (test code=RDW) 17.7 % 11.6-16.2 PLATELET COUNT (test code=PLT) 259 K/mm3 150-450 MEAN PLATELET VOLUME (test code=MPV) 14.2 fL 6.7-11.0 [id number] 03:09:00* Test Item Value Reference Range Comments GLUBED (test code=GLUBED) 199 mg/dL 74-106 Performed by certified stretch press operator at [facility] [id number] 23:50:00* Test Item Value Reference Range Comments GLUBED (test code=GLUBED) 174 mg/dL 74-106 Performed by certified stretch press operator at [facility] [id number] 21:02:00* Test Item Value Reference Range Comments GLUBED (test code=GLUBED) 200 mg/dL 74-106 Performed by certified stretch press operator at [facility] [id number] 19:52:00* Test Item Value Reference Range Comments GLUBED (test code=GLUBED) 201 mg/dL 74-106 Performed by certified stretch press operator at [facility] [id number] 18:27:00* Test Item Value Reference Range Comments GLUBED (test code=GLUBED) 217 mg/dL 74-106 Performed by certified stretch press operator at [facility] [id number] 17:01:00* Test Item Value Reference Range Comments GLUBED (test code=GLUBED) 266 mg/dL 74-106 Performed by certified stretch press operator at [facility] [id number] 17:01:00* Test Item Value Reference Range Comments GLUBED (test code=GLUBED) 307 mg/dL 74-106 Performed by certified stretch press operator at [facility] [id number] 17:01:00* Test Item Value Reference Range Comments GLUBED (test code=GLUBED) 310 mg/dL 74-106 Performed by certified stretch press operator at [facility] [id number] 17:01:00* Test Item Value Reference Range Comments GLUBED (test code=GLUBED) 363 mg/dL 74-106 Performed by certified stretch press operator at [facility] [id number] 17:01:00* Test Item Value Reference Range Comments GLUBED (test code=GLUBED) 417 mg/dL 74-106 Performed by certified stretch press operator at [facility] [id number] 12:07:00* Test Item Value Reference Range Comments GLUBED (test code=GLUBED) 471 mg/dL 74-106 Performed by certified stretch press operator at [facility] [id number] 10:42:00* Test Item Value Reference Range Comments GLUBED (test code=GLUBED) > 500 mg/dL 74-106 Performed by certified stretch press operator at [facility] ARTERIAL BLOOD [id number] 09:06:00* Test Item Value Reference Range Comments ARTERIAL BLOOD GAS PH (test code=PHA) 7.56 7.35-7.45 Results called to and read back by dr herbert 06:27 - 01/21/2019; by [id number] ARTERIAL BLOOD GAS PCO2 (test code=PCO2A) 44.6 mm Hg 35-45 ARTERIAL BLOOD GAS PO2 (test code=PO2A) 151.2 mmHg 80-100 BICARBONATE TOTAL HCO3 (test code=HCO3) 39.4 mmol/L 23.0-27.0 Results called to and read back by dr herbert 06: - 01/21/2019; by [id number] BASE EXCESS (test code=BENSON) 15.8 mmol/L -3.0-5.0 Results called to and read back by dr herbert 06: - 01/21/2019; by [id number] ABG O2 SATURATION (test code=SATA) 98.9 % 90.0-98.0 ABG TYPE (test code=TYPEA) Arterial FIO2 (test code=FIO2A) 70.0 ABG VENT MODE (test code=MODEA) Assist Control ABG VENT RESP RATE (test code=RRA) 18.0 per min ABG TIDAL VOLUME (test code=TVA) 450.0 mL ABG PEEP (test code=PEEPA) 5.0 cmH2O ABG SITE (test code=SITEA) Rt BRACHIAL ARTERY MODIFIED ALLENS (test code=MODALL) Unable CHECK PERFORMED HEMATOCRIT (test code=HCT/ABG) 18 % 42-52 TOTAL HGB (test code=THB) 6.2 gram/dL 13.0-17.5 HGB O2 SAT (test code=HBOSAT) 97.7 % 94.00-98.00 CARBOXYHEMOGLOBIN (test code=HOHGBT) 0.7 %totalHg 0.5-1.5 METHEMOGLOBIN (test code=METHGB) 0.5 % 0.0-1.50 O2 CONTENT (test code=O2CT) 8.9 % vol 18.0-22.0 - CT HEAD/BRAIN W/O [id number] 07:59:00 Name: ALVAROZEESHAN [facility] : 1940 Age/S: 78 / M [address] [facility] Unit #: [id number] Loc: [facility] [place] [address] Phys: Candi Garcia DO Acct: [id number] Dis Date: Status: ADM IN PHONE #: [phone] Exam Date: 01/21/2019 0748 FAX #: [phone] Reason: AMS EXAMS: CPT CODE: [id number] CT HEAD/BRAIN W/O CONT 67318 HISTORY: Altered mental status TECHNIQUE: Noncontrast 2.[address] of the head. Examination acquired within 24 hours of arrival. Automated exposure control for dose reduction; DLP: 863 mGy-cm. COMPARISON: None FINDINGS: No acute hemorrhage. No CT evidence of acute infarct. Mild periventricular chronic microvascular ischemic changes. No intracranial mass or mass effect. Mild parenchymal atrophy. Moderate ventriculomegaly which appears disproportionate to degree of parenchymal atrophy. No extra- axial fluid collection. Atherosclerotic vascular calcification of the carotid siphons. Visualized paranasal sinuses are clear. Opa cification of the bilateral mastoids and left middle ear cavity. Orbital c ontents are unremarkable. Calvarium and skull base are intact. IMPRESSION: No acute intracranial process. 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 Mild findings of chronic microvascular ischemia. Atherosclerotic vascular disease. at 0759 Reported and signed by: Sheela Esparza D.O. CC: Jean Ernst MD; Candi Garcia DO Technologist:Vishnu Hodges RT(R),(MR),(CT); CTDI: DLP: Trnscb Date/Time: 01/21/2019 (075) [email or web address] Orig Print D/T: S: 01/21/2019 (0802) PAGE 1 Signed Report [id number] 06:52:00* Test Item Value Reference Range Comments GLUBED (test code=GLUBED) 470 mg/dL 74-106 Performed by certified stretch press operator at [facility] - CT ABD PELVIS W/O [id number] 06:08:00 Name: ZEESHAN JOHN III [facility] : 1940 Age/S: 78 / M [address] [facility] Unit #: [id number] Loc: [facility] [place] [address] Phys: Candi Garcia DO Acct: [id number] Dis Date: Status: REG ER PHONE #: [phone] Exam Date: 01/21/2019528 FAX #: [phone] Reason: ABDOMINAL PAIN EXAMS: CPT CODE: [id number] CT ABD PELVIS W/O CONT 97043 EXAM: - CT ABD PELVIS W/O CONT HISTORY: Abdominal pain. TECHNIQUE: Axial tomograms through the abdomen and pelvis were obtained without intravenous contrast. Coronal and sagittal reformatted images are provided. This exam was performed according to our departmental dose-optimization program, which includes automated exposure control, adjustment of the mA and/or kV according to patient size and/or use of iterative reconstruction technique. COMPARISON: None available time of interpretation. FINDINGS: Bilateral lower lung atelectasis is present. Small pleural effusions bilaterally. Coronary artery calcifications are present. Gastric tube is present. The liver, spleen, pancreas, adrenal glands demonstrate no significant abnormalities. Prominent renal collecting systems bilaterally. Ureters are normal in size. Bilateral perinephric stranding is present. Limited noncontrast exam for evaluation. The appendix has a normal appearance. The bowel is unrem arkable. There is no adenopathy or free fluid. The urinary b ladder is decompressed with Barnett catheter. The osseous structures demonst rate degenerative change without focal lesion. There is ca lcified plaque involving the abdominal aorta and it's major branching vess els. IVC filter is present. IMPRESSION: Bilateral lower lung atelectasis and trace pleural effusions. No definite acute abnormality. PAGE 1 Signed Report (CONTINUED) Name: ZEESHAN JOHN III [facility] : 1940 Age/S: 78 / M [address] Unit #: [id number] Loc: Lori Goodwin X [address] Phys: Candi Garcia DO Acct: [id number] Dis Date: Status: REG ER PHONE #: [phone] Exam Date: 01/21/2019528 FAX #: [phone] Reason: ABDOMINAL PAIN EXAMS: CPT CODE: [id number] CT ABD PELVIS W/O CONT [id number] <Continued> Other findings as above. at 0608 Reported and signed by: Abiodun Gan MD CC: Candi Garcia DO Technologist:[employer] CTDI: DLP: Trnscb Date/Time: 01/21/2019 (0608) [email or web address] Orig Print D/T: S: 01/21/2019 (1460) PAGE 2 Signed Report URINALYSIS [id number] 05:06:00* Test Item Value Reference Range Comments UA COLOR (test code=COLU) YELLOW UA APPEARANCE (test code=APPU) CLEAR UA BILIRUBIN DIPSTICK (test code=BILU) NEGATIVE UA SPECIFIC GRAVITY (test code=SGU) 1.001-1.035 UA PH DIPSTICK (test code=FATOUMATA) 5.0-8.0 UA UROBILINIOGEN DIPSTICK (test code=URO) mg/dL 0.0-0.2 UA NITRITE DIPSTICK (test code=ROSALIA) NEGATIVE UA LEUKOCYTE ESTERASE W REFLEX (test code=LEUUR) NEGATIVE UA WBC (test code=WBCU) 51-100 per HPF 0-5 UA RBC (test code=RBCU) 0-2 per HPF 0-5 UA EPITHELIAL CELLS (test code=EPIU) Few (2-5/hpf) per HPF Few UA BACTERIA (test code=BACU) MANY per HPF NONE Urine Source? Clean CatchURINALYSIS [id number] 05:06:00* Test Item Value Reference Range Comments UA COLOR (test code=COLU) YELLOW YELLOW UA APPEARANCE (test code=APPU) CLOUDY CLEAR UA GLUCOSE DIPSTICK (test code=DGLUU) NEGATIVE mg/dL NEGATIVE UA BILIRUBIN DIPSTICK (test code=BILU) NEGATIVE NEGATIVE UA KETONE DIPSTICK (test code=KETU) TRACE mg/dL NEGATIVE UA SPECIFIC GRAVITY (test code=SGU) 1.015 1.001-1.035 UA BLOOD DIPSTICK (test code=JAIMEE) TRACE NEGATIVE UA PH DIPSTICK (test code=FATOUMATA) 6.0 5.0-8.0 UA PROTEIN DIPSTICK (test code=PROU) TRACE (15) mg/dL Neg-15 UA UROBILINIOGEN DIPSTICK (test code=URO) 0.2 mg/dL 0.0-0.2 UA NITRITE DIPSTICK (test code=ROSALIA) NEGATIVE NEGATIVE UA LEUKOCYTE ESTERASE W REFLEX (test code=LEUUR) 2+ NEGATIVE UA WBC (test code=WBCU) 51-100 per HPF 0-5 UA RBC (test code=RBCU) 0-2 per HPF 0-5 UA EPITHELIAL CELLS (test code=EPIU) Few (2-5/hpf) per HPF Few UA BACTERIA (test code=BACU) MANY per HPF NONE Urine Source? Clean CatchCBC W/MANUAL [id number] 04:35:00* Test Item Value Reference Range Comments WHITE BLOOD CELL (test code=WBC) 23.2 K/mm3 4.5-12.5 RED BLOOD CELL (test code=RBC) 2.78 mill/mm3 4.0-5.8 HEMOGLOBIN (test code=HGB) 8.1 gram/dL 13.0-17.5 HEMATOCRIT (test code=HCT) 28.7 % 42.0-52.0 MEAN CELL VOLUME (test code=MCV) 103.2 fL 80-98 MEAN CELL HGB (test code=MCH) 29.1 picogram 27.0-33.0 MEAN CELL HGB CONCETRATION (test code=MCHC) 28.2 gram/dL 33.0-36.0 RED CELL DISTRIBUTION WIDTH (test code=RDW) 16.3 % 11.6-16.2 RED CELL DISTRIBUTION WIDTH SD (test code=RDW-SD) 61.7 fL 37.0-51.0 PLATELET COUNT (test code=PLT) 341 K/mm3 150-450 MEAN PLATELET VOLUME (test code=MPV) 13.6 fL 6.7-11.0 IMMATURE GRANULOCYTE % (test code=IG%) 0.7 % 0.0-5.0 NUCLEATED RBC % (test code=NRBC%) 0.1 % 0-0 NEUTROPHIL # (test code=NT#) 20.29 K/mm3 1.8-7.7 IMMATURE GRANULOCYTE # (test code=IG#) 0.17 x10 3/uL 0-0.03 LYMPHOCYTE # (test code=LY#) 1.27 K/mm3 1.0-5.0 MONOCYTE # (test code=MO#) 1.28 K/mm3 0-0.8 EOSINOPHIL # (test code=EO#) 0.12 K/mm3 0.0-0.5 BASOPHIL # (test code=BA#) 0.09 K/mm3 0.0-0.2 NUCLEATED RBC # (test code=NRBC#) 0.02 K/mm3 0.0-0.1 MANUAL DIFF REQUIRED (test code=MDIFF) YES STAIN ACCEPTABILITY (test code=STN ACCEPTABLE) STAIN ACCEPTABLE TOTAL CELLS COUNTED (test code=TCC) 113 #CELLS SEGMENTED NEUTROPHILS (test code=SEG) 92.0 % 39-69 BAND NEUTROPHIL (test code=BAND) 4.4 % 0-10 LYMPHOCYTE (test code=LYMPH) 0.9 % 25-55 REACTIVE LYMPH (test code=RELYMPH) 0 % MONOCYTE (test code=MON) 2.7 % 0-10 EOSINOPHIL (test code=EOS) 0 % 0.0-5.0 BASOPHIL (test code=BASO) 0 % 0-1.0 METAMYELOCYTE (test code=META) 0 % 0-0 MYELOCYTE (test code=MYELO) 0 % 0.0-0.0 PROMYELOCYTE (test code=PROM) 0 % 0-0 ANISOCYTOSIS (test code=ANISO) 1+ MACROCYTOSIS (test code=MACR) 1+ PLATELET ESTIMATE (test code=PLTEST) ADEQUATE PLATELET MORPHOLOGY (test code=PLTMORPH) CLUMPING PRESENT IMMATURE FORMS (test code=IMMAT) 0 % 0-0 BASIC METABOLIC [id number] 04:27:00* Test Item Value Reference Range Comments SODIUM (test code=NA) 148 mmol/L 136-145 POTASSIUM (test code=K) 4.4 mmol/L 3.5-5.1 CHLORIDE (test code=CL) 101.0 mmol/L 98-107 CARBON DIOXIDE (test code=CO2) 39.0 mmol/L 21-32 ANION GAP (test code=GAP) 12.4 10-20 GLUCOSE (test code=GLU) 492 mg/dL 74-106 BLOOD UREA NITROGEN (test code=BUN) 172 mg/dL 7-18 Previously reported result: 172 mg/dLEdited by: [email or web address] on 01/21/19:0426 01/21/19 0426: BUN previously reported as: 172 H mg/dL GLOMERULAR FILTRATION RATE (test code=GFR) 29 mL/min >=60 Estimated GFR by using Modified MDRD formula.Chronic kidney disease is defined as either kidney damageor GFR <60 mL/min/1.73 m2 for >3 months. CREATININE (test code=CREAT) 2.20 mg/dL 0.7-1.3 BUN/CREATININE RATIO (test code=BUN/CREA) 78.2 10-20 CALCIUM (test code=CA) 9.8 mg/dL 8.5-10.1 HEPATIC FUNCTION [id number] 04:27:00* Test Item Value Reference Range Comments TOTAL PROTEIN (test code=PROT) 7.3 gram/dL 6.4-8.2 ALBUMIN (test code=ALB) 1.7 g/dL 3.4-5.0 GLOBULIN (test code=GLOB) 5.6 gram/dL 2.7-4.2 ALBUMIN/GLOBULIN RATIO (test code=A/G) 0.3 0.75-1.50 BILIRUBIN TOTAL (test code=BILT) 0.30 mg/dL 0.0-1.0 BILIRUBIN DIRECT (test code=BILD) 0.08 mg/dL 0.0-0.20 SGOT/AST (test code=AST) 24 IUnit/L 15-37 SGPT/ALT (test code=ALT) 23 IUnit/L 12-78 ALKALINE PHOSPHATASE TOTAL (test code=ALKP) 160 IUnit/L 45-117 Note change in reference range due to change in reagent. [id number] 04:27:00* Test Item Value Reference Range Comments TROPONIN-I (test code=TROPI) 0.228 ng/mL 0-0.045 Results called to [id number] by CARLAAGVani 01/21/19 0425Critical results verified and read back by Nurse?Y PROCALCITONIN (PCT)2019-01-21 04:27:00* Test Item Value Reference Range Comments PROCALCITONIN (PCT) (test code=PROCAL) 1.83 ng/ml Concentration Interpretation (ng/mL) <0.51 Sepsis is not likely. Local bacterial infection is possible. (LOW RISK for progression to Sepsis) 0.51 - 2.00 Sepsis is possible, but other conditions are known to elevate PCT as well. (MODERATE RISK for progression to Sepsis) > 2.00 Sepsis is likely, unless other causes are known. (HIGH RISK for progression to Severe Sepsis or Septic Shock) 10.00 High likelihood of Severe Sepsis or Septic or higher Shock. *Increased PCT levels may not always be related to systemic bacterial infection.*Low PCT levels do not automatically exclude the presence of bacterial infection.*All results should be interpreted taking into account the patients history. BASIC METABOLIC [id number] 04:26:00* Test Item Value Reference Range Comments SODIUM (test code=NA) 148 mmol/L 136-145 POTASSIUM (test code=K) 4.4 mmol/L 3.5-5.1 CHLORIDE (test code=CL) 101.0 mmol/L 98-107 CARBON DIOXIDE (test code=CO2) 39.0 mmol/L 21-32 ANION GAP (test code=GAP) 12.4 10-20 GLUCOSE (test code=GLU) 492 mg/dL 74-106 BLOOD UREA NITROGEN (test code=BUN) 172 mg/dL 7-18 GLOMERULAR FILTRATION RATE (test code=GFR) 29 mL/min >=60 Estimated GFR by using Modified MDRD formula.Chronic kidney disease is defined as either kidney damageor GFR <60 mL/min/1.73 m2 for >3 months. CREATININE (test code=CREAT) 2.20 mg/dL 0.7-1.3 BUN/CREATININE RATIO (test code=BUN/CREA) 10-20 CALCIUM (test code=CA) 9.8 mg/dL 8.5-10.1 HEPATIC FUNCTION [id number] 04:26:00* Test Item Value Reference Range Comments TOTAL PROTEIN (test code=PROT) 7.3 gram/dL 6.4-8.2 ALBUMIN (test code=ALB) 1.7 g/dL 3.4-5.0 GLOBULIN (test code=GLOB) 5.6 gram/dL 2.7-4.2 ALBUMIN/GLOBULIN RATIO (test code=A/G) 0.3 0.75-1.50 BILIRUBIN TOTAL (test code=BILT) 0.30 mg/dL 0.0-1.0 BILIRUBIN DIRECT (test code=BILD) 0.08 mg/dL 0.0-0.20 SGOT/AST (test code=AST) 24 IUnit/L 15-37 SGPT/ALT (test code=ALT) 23 IUnit/L 12-78 ALKALINE PHOSPHATASE TOTAL (test code=ALKP) 160 IUnit/L 45-117 Note change in reference range due to change in reagent. [id number] 04:26:00* Test Item Value Reference Range Comments TROPONIN-I (test code=TROPI) 0.228 ng/mL 0-0.045 Results called to [id number] by [email or web address] 01/21/19 0425Critical results verified and read back by Nurse?Y BASIC METABOLIC [id number] 04:24:00* Test Item Value Reference Range Comments SODIUM (test code=NA) 148 mmol/L 136-145 POTASSIUM (test code=K) 4.4 mmol/L 3.5-5.1 CHLORIDE (test code=CL) 101.0 mmol/L 98-107 CARBON DIOXIDE (test code=CO2) mmol/L 21-32 ANION GAP (test code=GAP) 10-20 GLUCOSE (test code=GLU) mg/dL 74-106 BLOOD UREA NITROGEN (test code=BUN) 172 mg/dL 7-18 GLOMERULAR FILTRATION RATE (test code=GFR) mL/min >=60 CREATININE (test code=CREAT) mg/dL 0.7-1.3 BUN/CREATININE RATIO (test code=BUN/CREA) 10-20 CALCIUM (test code=CA) mg/dL 8.5-10.1 HEPATIC FUNCTION [id number] 04:24:00* Test Item Value Reference Range Comments TOTAL PROTEIN (test code=PROT) gram/dL 6.4-8.2 ALBUMIN (test code=ALB) g/dL 3.4-5.0 GLOBULIN (test code=GLOB) gram/dL 2.7-4.2 ALBUMIN/GLOBULIN RATIO (test code=A/G) 0.75-1.50 BILIRUBIN TOTAL (test code=BILT) mg/dL 0.0-1.0 BILIRUBIN DIRECT (test code=BILD) mg/dL 0.0-0.20 SGOT/AST (test code=AST) IUnit/L 15-37 SGPT/ALT (test code=ALT) IUnit/L 12-78 ALKALINE PHOSPHATASE TOTAL (test code=ALKP) IUnit/L 45-117 [id number] 04:24:00* Test Item Value Reference Range Comments TROPONIN-I (test code=TROPI) ng/mL 0-0.045 - XR CHEST 1 [id number] 04:16:00 FAX: Candi Garcia DO [place]: [address] St: REG Name: ZEESHAN MOURA III [facility] : [birth year] Age/S: 78/M [address] [facility] Unit #: [id number] Loc: AnatoliyRAJWINDER Mariee [address] Phys: Candi Garcia DO Acct: [id number] Dis Date: Status: REG ER PHONE #: [phone] Exam Date: 01/21/2019352 FAX #: [phone] Reason: CODE SEPSIS EXAMS: CPT CODE: [id number] XR CHEST 1 V [id number] Site ID: [id number] HISTORY: Elevated temperature and respiratory distress COMPARISON: Chest x- ray November 07, 2018 FINDINGS: Tracheostomy tube ap pears appropriately positioned. The right lung is well expanded and clear . A small left pleural effusion is associated with hazy left basilar infi ltrate/atelectasis. The heart and pulmonary vasculature is normal. Osseous structures are unremarkable. IMPRESSION: A small left pleural effusion is associated with hazy left bas ilar infiltrate/atelectasis. at 0412 Reported and s igned by: Collin Bartlett M.D. CC: Candi Garcia DO Technologist: RT ROMIE Trnscrd Date/Time/By: 01/21/2019 (0416) : By: [email or web address] Orig Print D/T: S: 01/21/2019 (0423) PAGE 1 Signed Report CBC W/MANUAL [id number] 04:09:00* Test Item Value Reference Range Comments WHITE BLOOD CELL (test code=WBC) 23.2 K/mm3 4.5-12.5 RED BLOOD CELL (test code=RBC) 2.78 mill/mm3 4.0-5.8 HEMOGLOBIN (test code=HGB) 8.1 gram/dL 13.0-17.5 HEMATOCRIT (test code=HCT) 28.7 % 42.0-52.0 MEAN CELL VOLUME (test code=MCV) 103.2 fL 80-98 MEAN CELL HGB (test code=MCH) 29.1 picogram 27.0-33.0 MEAN CELL HGB CONCETRATION (test code=MCHC) 28.2 gram/dL 33.0-36.0 RED CELL DISTRIBUTION WIDTH (test code=RDW) 16.3 % 11.6-16.2 RED CELL DISTRIBUTION WIDTH SD (test code=RDW-SD) 61.7 fL 37.0-51.0 PLATELET COUNT (test code=PLT) 341 K/mm3 150-450 MEAN PLATELET VOLUME (test code=MPV) 13.6 fL 6.7-11.0 IMMATURE GRANULOCYTE % (test code=IG%) 0.7 % 0.0-5.0 NUCLEATED RBC % (test code=NRBC%) 0.1 % 0-0 NEUTROPHIL # (test code=NT#) 20.29 K/mm3 1.8-7.7 IMMATURE GRANULOCYTE # (test code=IG#) 0.17 x10 3/uL 0-0.03 LYMPHOCYTE # (test code=LY#) 1.27 K/mm3 1.0-5.0 MONOCYTE # (test code=MO#) 1.28 K/mm3 0-0.8 EOSINOPHIL # (test code=EO#) 0.12 K/mm3 0.0-0.5 BASOPHIL # (test code=BA#) 0.09 K/mm3 0.0-0.2 NUCLEATED RBC # (test code=NRBC#) 0.02 K/mm3 0.0-0.1 MANUAL DIFF REQUIRED (test code=MDIFF) YES STAIN ACCEPTABILITY (test code=STN ACCEPTABLE) TOTAL CELLS COUNTED (test code=TCC) #CELLS SEGMENTED NEUTROPHILS (test code=SEG) % 39-69 LYMPHOCYTE (test code=LYMPH) % 25-55 MONOCYTE (test code=MON) % 0-10 MORPHOLOGY COMMENT (test code=MOC) PLATELET ESTIMATE (test code=PLTEST) PLATELET MORPHOLOGY (test code=PLTMORPH) PROTHROMBIN [id number] 04:08:00* Test Item Value Reference Range Comments PROTHROMBIN TIME PATIENT (test code=PTP) 15.7 seconds 9.0-14.0 INTERNATIONAL NORMAL RATIO (test code=INR) 1.3 0.8-1.2 The therapeutic range for oral anticoagulant therapy formost indications is an international normalized ratio (INR)of between 2.0 and 3.0. The recommended therapeutic INRrange for various clinical situations is listed below: Clinical Situation INR range Pulmonary e mbolism treatment (2.0-3.0)Venous thrombosis treatmentVenous thrombosis prophylaxis (high risk surgery)Prevention of systemic embolism from: Acute myocardial infarction Valvular heart disease Atrial fibrillation Mechanical prosthetic heart valves (2.5-3.5) IS PATIENT ON ANTICOAGULANTS? NTHROMBOPLASTIN TIME [id number] 04:08:00* Test Item Value Reference Range Comments THROMBOPLASTIN TIME PARTIAL (test code=PTT) 36.5 seconds 25.0-36.5 IS PATIENT ON ANTICOAGULANTS? NBASIC METABOLIC [id number] 04:06:00* Test Item Value Reference Range Comments SODIUM (test code=NA) 148 mmol/L 136-145 POTASSIUM (test code=K) 4.4 mmol/L 3.5-5.1 CHLORIDE (test code=CL) 101.0 mmol/L 98-107 CARBON DIOXIDE (test code=CO2) mmol/L 21-32 ANION GAP (test code=GAP) 10-20 GLUCOSE (test code=GLU) mg/dL 74-106 BLOOD UREA NITROGEN (test code=BUN) mg/dL 7-18 GLOMERULAR FILTRATION RATE (test code=GFR) mL/min >=60 CREATININE (test code=CREAT) mg/dL 0.7-1.3 BUN/CREATININE RATIO (test code=BUN/CREA) 10-20 CALCIUM (test code=CA) mg/dL 8.5-10.1 HEPATIC FUNCTION [id number] 04:06:00* Test Item Value Reference Range Comments TOTAL PROTEIN (test code=PROT) gram/dL 6.4-8.2 ALBUMIN (test code=ALB) g/dL 3.4-5.0 GLOBULIN (test code=GLOB) gram/dL 2.7-4.2 ALBUMIN/GLOBULIN RATIO (test code=A/G) 0.75-1.50 BILIRUBIN TOTAL (test code=BILT) mg/dL 0.0-1.0 BILIRUBIN DIRECT (test code=BILD) mg/dL 0.0-0.20 SGOT/AST (test code=AST) IUnit/L 15-37 SGPT/ALT (test code=ALT) IUnit/L 12-78 ALKALINE PHOSPHATASE TOTAL (test code=ALKP) IUnit/L 45-117 [id number] 04:06:00* Test Item Value Reference Range Comments TROPONIN-I (test code=TROPI) ng/mL 0-0.045 LACTIC [id number] 04:06:00* Test Item Value Reference Range Comments LACTIC ACID (test code=LACT) 1.5 mmol/L 0.4-1.9 CBC W/MANUAL [id number] 04:06:00* Test Item Value Reference Range Comments WHITE BLOOD CELL (test code=WBC) 23.2 K/mm3 4.5-12.5 RED BLOOD CELL (test code=RBC) 2.78 mill/mm3 4.0-5.8 HEMOGLOBIN (test code=HGB) 8.1 gram/dL 13.0-17.5 HEMATOCRIT (test code=HCT) 28.7 % 42.0-52.0 MEAN CELL VOLUME (test code=MCV) 103.2 fL 80-98 MEAN CELL HGB (test code=MCH) 29.1 picogram 27.0-33.0 MEAN CELL HGB CONCETRATION (test code=MCHC) 28.2 gram/dL 33.0-36.0 RED CELL DISTRIBUTION WIDTH (test code=RDW) 16.3 % 11.6-16.2 RED CELL DISTRIBUTION WIDTH SD (test code=RDW-SD) 61.7 fL 37.0-51.0 PLATELET COUNT (test code=PLT) 341 K/mm3 150-450 MEAN PLATELET VOLUME (test code=MPV) 13.6 fL 6.7-11.0 IMMATURE GRANULOCYTE % (test code=IG%) 0.7 % 0.0-5.0 NUCLEATED RBC % (test code=NRBC%) 0.1 % 0-0 NEUTROPHIL # (test code=NT#) 20.29 K/mm3 1.8-7.7 IMMATURE GRANULOCYTE # (test code=IG#) 0.17 x10 3/uL 0-0.03 LYMPHOCYTE # (test code=LY#) 1.27 K/mm3 1.0-5.0 MONOCYTE # (test code=MO#) 1.28 K/mm3 0-0.8 EOSINOPHIL # (test code=EO#) 0.12 K/mm3 0.0-0.5 BASOPHIL # (test code=BA#) 0.09 K/mm3 0.0-0.2 NUCLEATED RBC # (test code=NRBC#) 0.02 K/mm3 0.0-0.1 MANUAL DIFF REQUIRED (test code=MDIFF) YES STAIN ACCEPTABILITY (test code=STN ACCEPTABLE) TOTAL CELLS COUNTED (test code=TCC) #CELLS SEGMENTED NEUTROPHILS (test code=SEG) % 39-69 LYMPHOCYTE (test code=LYMPH) % 25-55 MONOCYTE (test code=MON) % 0-10 EOSINOPHIL (test code=EOS) % 0.0-5.0 CABOT RINGS (test code=CAB) MORPHOLOGY COMMENT (test code=MOC) PLATELET ESTIMATE (test code=PLTEST) PLATELET MORPHOLOGY (test code=PLTMORPH) CBC W/MANUAL [id number] 04:06:00* Test Item Value Reference Range Comments WHITE BLOOD CELL (test code=WBC) 23.2 K/mm3 4.5-12.5 RED BLOOD CELL (test code=RBC) 2.78 mill/mm3 4.0-5.8 HEMOGLOBIN (test code=HGB) 8.1 gram/dL 13.0-17.5 HEMATOCRIT (test code=HCT) 28.7 % 42.0-52.0 MEAN CELL VOLUME (test code=MCV) 103.2 fL 80-98 MEAN CELL HGB (test code=MCH) 29.1 picogram 27.0-33.0 MEAN CELL HGB CONCETRATION (test code=MCHC) 28.2 gram/dL 33.0-36.0 RED CELL DISTRIBUTION WIDTH (test code=RDW) 16.3 % 11.6-16.2 RED CELL DISTRIBUTION WIDTH SD (test code=RDW-SD) 61.7 fL 37.0-51.0 PLATELET COUNT (test code=PLT) 341 K/mm3 150-450 MEAN PLATELET VOLUME (test code=MPV) 13.6 fL 6.7-11.0 IMMATURE GRANULOCYTE % (test code=IG%) 0.7 % 0.0-5.0 NUCLEATED RBC % (test code=NRBC%) 0.1 % 0-0 NEUTROPHIL # (test code=NT#) 20.29 K/mm3 1.8-7.7 IMMATURE GRANULOCYTE # (test code=IG#) 0.17 x10 3/uL 0-0.03 LYMPHOCYTE # (test code=LY#) 1.27 K/mm3 1.0-5.0 MONOCYTE # (test code=MO#) 1.28 K/mm3 0-0.8 EOSINOPHIL # (test code=EO#) 0.12 K/mm3 0.0-0.5 BASOPHIL # (test code=BA#) 0.09 K/mm3 0.0-0.2 NUCLEATED RBC # (test code=NRBC#) 0.02 K/mm3 0.0-0.1 MANUAL DIFF REQUIRED (test code=MDIFF) YES STAIN ACCEPTABILITY (test code=STN ACCEPTABLE) TOTAL CELLS COUNTED (test code=TCC) #CELLS SEGMENTED NEUTROPHILS (test code=SEG) % 39-69 LYMPHOCYTE (test code=LYMPH) % 25-55 MONOCYTE (test code=MON) % 0-10 EOSINOPHIL (test code=EOS) % 0.0-5.0 CABOT RINGS (test code=CAB) MORPHOLOGY COMMENT (test code=MOC) PLATELET ESTIMATE (test code=PLTEST) PLATELET MORPHOLOGY (test code=PLTMORPH) CBC W/MANUAL [id number] 04:06:00* Test Item Value Reference Range Comments WHITE BLOOD CELL (test code=WBC) 23.2 K/mm3 4.5-12.5 RED BLOOD CELL (test code=RBC) 2.78 mill/mm3 4.0-5.8 HEMOGLOBIN (test code=HGB) 8.1 gram/dL 13.0-17.5 HEMATOCRIT (test code=HCT) 28.7 % 42.0-52.0 MEAN CELL VOLUME (test code=MCV) 103.2 fL 80-98 MEAN CELL HGB (test code=MCH) 29.1 picogram 27.0-33.0 MEAN CELL HGB CONCETRATION (test code=MCHC) 28.2 gram/dL 33.0-36.0 RED CELL DISTRIBUTION WIDTH (test code=RDW) 16.3 % 11.6-16.2 RED CELL DISTRIBUTION WIDTH SD (test code=RDW-SD) 61.7 fL 37.0-51.0 PLATELET COUNT (test code=PLT) 341 K/mm3 150-450 MEAN PLATELET VOLUME (test code=MPV) 13.6 fL 6.7-11.0 IMMATURE GRANULOCYTE % (test code=IG%) 0.7 % 0.0-5.0 NUCLEATED RBC % (test code=NRBC%) 0.1 % 0-0 NEUTROPHIL # (test code=NT#) 20.29 K/mm3 1.8-7.7 IMMATURE GRANULOCYTE # (test code=IG#) 0.17 x10 3/uL 0-0.03 LYMPHOCYTE # (test code=LY#) 1.27 K/mm3 1.0-5.0 MONOCYTE # (test code=MO#) 1.28 K/mm3 0-0.8 EOSINOPHIL # (test code=EO#) 0.12 K/mm3 0.0-0.5 BASOPHIL # (test code=BA#) 0.09 K/mm3 0.0-0.2 NUCLEATED RBC # (test code=NRBC#) 0.02 K/mm3 0.0-0.1 MANUAL DIFF REQUIRED (test code=MDIFF) YES STAIN ACCEPTABILITY (test code=STN ACCEPTABLE) TOTAL CELLS COUNTED (test code=TCC) #CELLS SEGMENTED NEUTROPHILS (test code=SEG) % 39-69 LYMPHOCYTE (test code=LYMPH) % 25-55 MONOCYTE (test code=MON) % 0-10 EOSINOPHIL (test code=EOS) % 0.0-5.0 MORPHOLOGY COMMENT (test code=MOC) PLATELET ESTIMATE (test code=PLTEST) PLATELET MORPHOLOGY (test code=PLTMORPH) CBC W/MANUAL [id number] 04:06:00* Test Item Value Reference Range Comments WHITE BLOOD CELL (test code=WBC) 23.2 K/mm3 4.5-12.5 RED BLOOD CELL (test code=RBC) 2.78 mill/mm3 4.0-5.8 HEMOGLOBIN (test code=HGB) 8.1 gram/dL 13.0-17.5 HEMATOCRIT (test code=HCT) 28.7 % 42.0-52.0 MEAN CELL VOLUME (test code=MCV) 103.2 fL 80-98 MEAN CELL HGB (test code=MCH) 29.1 picogram 27.0-33.0 MEAN CELL HGB CONCETRATION (test code=MCHC) 28.2 gram/dL 33.0-36.0 RED CELL DISTRIBUTION WIDTH (test code=RDW) 16.3 % 11.6-16.2 RED CELL DISTRIBUTION WIDTH SD (test code=RDW-SD) 61.7 fL 37.0-51.0 PLATELET COUNT (test code=PLT) 341 K/mm3 150-450 MEAN PLATELET VOLUME (test code=MPV) 13.6 fL 6.7-11.0 IMMATURE GRANULOCYTE % (test code=IG%) 0.7 % 0.0-5.0 NUCLEATED RBC % (test code=NRBC%) 0.1 % 0-0 NEUTROPHIL # (test code=NT#) 20.29 K/mm3 1.8-7.7 IMMATURE GRANULOCYTE # (test code=IG#) 0.17 x10 3/uL 0-0.03 LYMPHOCYTE # (test code=LY#) 1.27 K/mm3 1.0-5.0 MONOCYTE # (test code=MO#) 1.28 K/mm3 0-0.8 EOSINOPHIL # (test code=EO#) 0.12 K/mm3 0.0-0.5 BASOPHIL # (test code=BA#) 0.09 K/mm3 0.0-0.2 NUCLEATED RBC # (test code=NRBC#) 0.02 K/mm3 0.0-0.1 MANUAL DIFF REQUIRED (test code=MDIFF) YES STAIN ACCEPTABILITY (test code=STN ACCEPTABLE) TOTAL CELLS COUNTED (test code=TCC) #CELLS SEGMENTED NEUTROPHILS (test code=SEG) % 39-69 LYMPHOCYTE (test code=LYMPH) % 25-55 MONOCYTE (test code=MON) % 0-10 EOSINOPHIL (test code=EOS) % 0.0-5.0 CABOT RINGS (test code=CAB) MORPHOLOGY COMMENT (test code=MOC) PLATELET ESTIMATE (test code=PLTEST) PLATELET MORPHOLOGY (test code=PLTMORPH) - XR CHEST 1 [id number] 16:44:00 FAX: Y Andrew Bolden MD [phone] [place]: St: REG Name: ZEESHAN MOURA III [facility] : [birth year] Age/S: 78/M [address] Unit #: [id number] Loc: [place] [address] Phys: Andrew Bolden MD Acct: [id number] Dis Date: Status: REG MIC PHONE #: [phone] Exam Date: 11/07/2018 1545 FAX #: [phone] Reason: TRACH PLACEMENT EXAMS: CPT CODE: [id number] XR CHEST 1 V [id number] EXAM: Chest x-ray, one view; INFORMATION: Status post tracheostomy; FINDINGS: Well- positioned tracheostomy tube. The tip of a right IJ central line is pos itioned in the cranial aspect of the right atrium. An NG tube has be en advanced into the stomach. Increased densities of the lower two thirds of the lungs consistent with a combination of atelectatic changes and inte rstitial and possibly alveolar edema. There are probably bilateral p leural effusions. The heart is moderately enlarged. IMPRES YASEMIN: 1. Cardiomegaly and left heart failure with interstitial and basil ar alveolar edema and atelectatic changes. 2. Well-positioned tr acheostomy tube and right IJ central line. 3. Well-positioned NG tube. at 4684 Reported and signed by: Jamie Farley M.D. CC: Andrew Bolden MD Technologist: MATT EL; LISA JACKSON, RT(R) [facility] Date/Time/By: 11/07/2018 (7667) : By: LaiGRW Orig Print D/T: S: 11/07/2018 (9803) PAGE 1 Signed Report [id number] 12:07:00* Test Item Value Reference Range Comments GLUBED (test code=GLUBED) 155 mg/dL 74-106 Performed by certified stretch press operator at [facility]
--- NOTE | 2019-03-04 23:04 | NUR ---
pt arrived via ambulance, transferred to bed from [facility]. resp noted slow and irregular. rt at bedside and attempting to suction orally and via inline suction through trach. hr noted decreasing. o2 sat in 30's per pulse ox monitor. md to room. see code sheet for further details.
--- NOTE | 2019-03-04 23:05 | NUR ---
18 GAUGE IV CATH PLACED TO PTS RIGHT EJ
--- NOTE | 2019-03-04 23:06 | NUR ---
rt stephanie states that cuff on trach tube under inflated on arrival to er. rt states that added 8cc air to cuff. oral secretions suctioned. o2 sat noted improving. see code sheet for further details.
--- NOTE | 2019-03-04 23:12 | NUR ---
NOY BASILIO, PTS DAUGHTER CONTACTED AT [phone]; PTS DAUGHTER CONFIRMED THAT PT IS DNR, VERIFIED/CONFIRMED WITH DR. CARROLL
--- NOTE | 2019-03-05 00:06 | NUR ---
report called to [facility] at [facility].
[2019-03-05 00:08] VITALS: BP 100/47
--- NOTE | 2019-03-05 00:13 | NUR ---
[facility] called for transport back to [facility].
== END 2019-03-05 01:03 ==
LOC: ER 22:54
DX: D64.9 Anemia, unspecified (principal); I46.9 Cardiac arrest, cause unspecified; R40.20 Unspecified coma
CPT/HCPCS: 94002; 99284; J0171

== ENCOUNTER 2019-03-07 17:42 | Observation (INO) | payer MEDICARE, OTHER ==
[~2019-03-07] VITALS: Ht 180.3 cm; Wt 103.4 kg
[2019-03-07 18:17] LABS: BASOPHILS % 0.2 % (0.0-1.0); EOSINOPHILS # (AUTO) 0.2 (0.0-0.4); EOSINOPHILS % 1.2 % (0.0-6.0); LYMPHOCYTES % 5.1 % (18.0-39.1); MEAN CORPUSCULAR HEMOGLOBIN 28.4 pg (28-32); MEAN CORPUSCULAR HGB CONC 30.7 g/dL (31-35); MEAN CORPUSCULAR VOLUME 92.7 fL (81-99); MONOCYTES % 10.1 % (4.4-11.3); NEUTROPHILS % 82.7 % (38.7-80.0); PLATELET COUNT 469 x10e3/uL (140-360); RED BLOOD COUNT 2.18 x10e6/uL (4.3-5.7); RED CELL DISTRIBUTION WIDTH 15.9 % (11.7-14.4)
[2019-03-07 18:20] LABS: HEMOGLOBIN 6.2 g/dL (14.0-18.0)
[2019-03-07 18:21] LABS: HEMATOCRIT 20.2 % (38.2-49.6)
[2019-03-07 18:23] LABS: INR 1.2; PROTHROMBIN TIME 15.8 seconds (11.9-14.5)
[2019-03-07 18:24] LABS: PARTIAL THROMBOPLASTIN TIME 31.4 seconds (23.8-35.5)
[2019-03-07] MEDS ORDERED: SODIUM CHLORIDE 0.9% 250ML 250 ML IV ONE (18:30)
[2019-03-07] MEDS ORDERED: DIPHENHYDRAMINE HCL INJ 50 MG/ML VIAL IV ONE (18:30)
[2019-03-07] MEDS ORDERED: FUROSEMIDE INJ 10 MG/ML 2 ML VIAL IV PRN (18:30)
[2019-03-07] MEDS ORDERED: ACETAMINOPHEN 325 MG TAB PO ONE (18:30)
[2019-03-07] MEDS ORDERED: PANTOPRAZOLE 40 MG 10ML VIAL IV ONE (18:30)
[2019-03-07 18:34] LABS: ALANINE AMINOTRANSFERASE 73 IU/L (0-55); ALBUMIN 1.4 g/dL (3.5-5.0); ALBUMIN/GLOBULIN RATIO 0.3 (0.8-2.0); ALKALINE PHOSPHATASE 378 IU/L (40-150); ANION GAP 13.1 mmol/L (8-16); BLOOD UREA NITROGEN 62 mg/dL (7-26); BUN/CREATININE RATIO 91 (6-25); CALCIUM 9.7 mg/dL (8.4-10.2); CHLORIDE 83 mmol/L (98-107); CREATINE KINASE 7 IU/L (30-200); CREATININE, SERUM 0.68 mg/dL (0.72-1.25); EST GLOMERULAR FILTRATION RATE > 60 ML/MIN (60-); GLUCOSE 154 mg/dL (74-118); POTASSIUM 4.1 mmol/L (3.5-5.1); SODIUM 135 mmol/L (136-145)
[2019-03-07 18:40] LABS: B-TYPE NATRIURETIC PEPTIDE2 1400.2 pg/mL (0-100)
[2019-03-07] MEDS ORDERED: SODIUM CHLORIDE FLUSH 10 ML SYR INJ PRN (18:45)
[2019-03-07] MEDS ORDERED: ONDANSETRON HCL INJ 2MG/ML 2ML 2 MG/ML VIAL IV PRN (18:45)
[2019-03-07 18:47] LABS: CARBON DIOXIDE 43 mmol/L (22-29)
--- NOTE | 2019-03-07 19:32 | NUR ---
CONSENT FOR TRANSUSION OF BLOOD AND/OR BLOOD PRODUCTS OBTAINED VIA TELEPHONE BY PTS DAUGHTER, NOY BASILIO; VERIFIED BY THIS RN AND Gulshan BAUMAN RN
--- NOTE | 2019-03-07 19:52 | Diagnostic Imaging Report ---
EXAMINATION: CHEST SINGLE (PORTABLE) INDICATION: Ventilation. COMPARISON: None FINDINGS: TUBES and LINES: Tracheostomy tube distal tip projected on the lower thoracic inlet. LUNGS: The lungs are hypoinflated. Mild prominence of the pulmonary vasculature may represent congestion. Patchy density in the lung bases suggestive of subsegmental atelectasis versus infection the proper clinical setting. PLEURA: Probable small bilateral pleural effusions. No pneumothorax. HEART AND MEDIASTINUM: Cardiac size is mildly enlarged. BONES AND SOFT TISSUES: No acute osseous lesion. Soft tissues are unremarkable. UPPER ABDOMEN: No free air under the diaphragm. IMPRESSION: Suboptimal inflation. Possible pulmonary venous congestion. Patchy density in the lung bases suggestive of subsegmental atelectasis versus infection the proper clinical setting. Signed by: Dr. Argentina Landa M.D. on 03/07/2019 7:48 PM
[2019-03-07] MEDS ORDERED: ACETAMINOPHEN 325 MG/10 ML UDC ONE (20:55)
[2019-03-07 20:59] LABS: LYMPHOCYTES % (MANUAL) 4 % (19-48); MONOCYTES % (MANUAL) 6 % (3.4-9.0); NEUTROPHILS % (MANUAL) 89 % (40-74); PLATELET ESTIMATE SLIGHTLY INCREASED; PLATELET MORPHOLOGY COMMENT FEW LARGE
[2019-03-07 21:00] LABS: HYPOCHROMASIA MODERATE; RBC MORPHOLOGY COMMENT NORMAL
[2019-03-07 21:06] LABS: BILIRUBIN,URINE NEGATIVE (NEGATIVE); CLARITY,URINE SL CLOUDY (CLEAR); COLOR,URINE YELLOW (YELLOW); KETONES,URINE NEGATIVE (NEGATIVE); LEUKOCYTE ESTERASE ,URINE SMALL (NEGATIVE); NITRITE,URINE NEGATIVE (NEGATIVE); PROTEIN,URINE DIPSTICK NEGATIVE (NEGATIVE); URINE UROBILINOGEN 0.2 mg/dL (0.2 - 1)
[2019-03-07 21:18] LABS: AMORPHOUS SEDIMENT,URINE MANY (FEW); BACTERIA,URINE FEW /HPF
[2019-03-07 21:30] VITALS: BP 103/43
[2019-03-07 22:00] VITALS: BP 103/43
[2019-03-07] MEDS ORDERED: SODIUM CHLORIDE 0.9% 250ML 250 ML ONE (22:29)
[2019-03-07 23:00] VITALS: BP 96/40
[2019-03-08] VITALS (15 sets, daily range): BP systolic 91–139; BP diastolic 42–103
[2019-03-08] MEDS ORDERED: SODIUM CHLORIDE 0.9% 250ML 250 ML ONE (01:59)
[2019-03-08] MEDS ORDERED: ACETAMINOPHEN 325 MG/10 ML UDC PEG PRN (04:15)
--- NOTE | 2019-03-08 07:56 | Diagnostic Imaging Report ---
A single frontal view of the chest. HISTORY: VENT, BLOOD TRANSFUSION COMPARISON: Chest radiograph March 07, 2019 DISCUSSION: Portable technique, limits sensitivity of the exam. Soft tissue attenuation partially limits sensitivity of the exam. Multiple overlying monitoring leads and artifacts. Tubes/Lines: Tracheostomy tube. Lungs and pleura: Low lung volumes result in bibasilar vascular crowding, accentuation of the pulmonary interstitial markings, central pulmonary vasculature, and the cardiac silhouette. Allowing for these limitations, the findings are as follows: Bilateral left greater than right atelectasis. Confluent opacity partially obscures the left hemidiaphragm. Diffusely increased interstitial and airspace opacities. Heart and mediastinum: The cardiomediastinal silhouette appears is partially obscured. The pulmonary vasculature is prominent. Bones and soft tissues: Appear unremarkable, given this limited exam. IMPRESSION: 1. Findings compatible with central pulmonary vascular congestion and moderate pulmonary edema. Superimposed pneumonia or aspiration may be a consideration the appropriate setting. 2. Small to moderate left pleural effusion with left greater than right bibasilar atelectasis. Signed by: Dr. Addy Flores D.O., M.M.M. on 03/08/2019 7:53 AM
[2019-03-08 08:18] LABS: BASOPHILS # (AUTO) 0.1 (0.0-0.1); BASOPHILS % 0.2 % (0.0-1.0); EOSINOPHILS # (AUTO) 0.2 (0.0-0.4); EOSINOPHILS % 0.8 % (0.0-6.0); HEMATOCRIT 25.3 % (38.2-49.6); HEMOGLOBIN 8.1 g/dL (14.0-18.0); LYMPHOCYTES # (AUTO) 0.9 (1.0-3.2); LYMPHOCYTES % 3.7 % (18.0-39.1); MEAN CORPUSCULAR HEMOGLOBIN 28.9 pg (28-32); MEAN CORPUSCULAR VOLUME 90.4 fL (81-99); MONOCYTES # (AUTO) 2.2 (0.2-0.8); NEUTROPHILS # (AUTO) 20.8 (2.1-6.9); NEUTROPHILS % 85.6 % (38.7-80.0); PLATELET COUNT 459 x10e3/uL (140-360); RED CELL DISTRIBUTION WIDTH 15.9 % (11.7-14.4)
[2019-03-08 08:32] LABS: ALANINE AMINOTRANSFERASE 63 IU/L (0-55); ALBUMIN 1.4 g/dL (3.5-5.0); ALBUMIN/GLOBULIN RATIO 0.3 (0.8-2.0); ALKALINE PHOSPHATASE 329 IU/L (40-150); ANION GAP 14.4 mmol/L (8-16); BLOOD UREA NITROGEN 57 mg/dL (7-26); BUN/CREATININE RATIO 86 (6-25); CALCIUM 9.9 mg/dL (8.4-10.2); CHLORIDE 85 mmol/L (98-107); CREATININE, SERUM 0.66 mg/dL (0.72-1.25); EST GLOMERULAR FILTRATION RATE > 60 ML/MIN (60-); GLUCOSE 146 mg/dL (74-118); POTASSIUM 3.4 mmol/L (3.5-5.1); SODIUM 137 mmol/L (136-145)
[2019-03-08 08:34] LABS: CARBON DIOXIDE 41 mmol/L (22-29)
[2019-03-08] MEDS ORDERED: PANTOPRAZOLE 40 MG 10ML VIAL IV SCH (09:00)
[2019-03-08 09:10] LABS: LYMPHOCYTES % (MANUAL) 5 % (19-48); MONOCYTES % (MANUAL) 10 % (3.4-9.0); NEUTROPHILS % (MANUAL) 85 % (40-74); PLATELET ESTIMATE ADEQUATE; PLATELET MORPHOLOGY COMMENT NORMAL; RBC MORPHOLOGY COMMENT NORMAL
--- NOTE | 2019-03-08 10:29 | NUR ---
Nutrition Intervention Note RD Recommendation(s) for Physician: Initiate Vital AF 1.2 via PEG at 65ml/hr/ 150ml water flush every 6hrs via PEG Plan of Care: RD following, monitoring for tolerance and adequacy Nutrition reason for involvement: Nutrition Risk Trigger RD Assessment Initial encounter with patient. No H&P available at time of visit and Pt was not able to provide a nutrition history. Nurse states that Pt was just transferred to ICU. Trach/Vent with a PEG. No EN order. Principal Problems/Diagnoses: anemia, trach/vent PMH: respiratory failure, multiple wounds, dysphagia GI: No N,V,D reported Skin: un - stageable sacral wound right calf wound, right heel DTI Labs: (03/08/2019) elevated LFTs Meds: (03/08/19) MAR reviewed Ht:71" Wt:223# BMI:31.1 IBW:172# Malnutrition Evaluation (03/08/19) The patient does not meet criteria for a specified degree of malnutrition at this time. Will re-evaluate at follow-up as appropriate. Nutrition Prescription (Diet Order): NPO Estimated Nutritional Needs: 1043-1205 calories/day (20-22 kcal/kg/BW) 101 - 150g protein/day ( 1-1.5g pro/kg/BW) Diet Adequacy: Not meeting calorie needs, Not meeting protein needs Diet Education Needs Assessment: Diet education not indicated. Nutrition Care Level: moderate Nutrition Diagnosis: Swallowing difficulty related to chronic illness as evidenced by dysphagia. Goal: Patient will meet 75-100% of estimated needs by follow up Progress: Progressing Interventions: Commercial food, Composition, Rate, Route, IVF medications, Collaboration with other providers Monitoring/Evaluation: Total energy intake, Total protein intake, Formula/Solution, IVF, Prescription medication, Weight change. Signed: Yunior Walter RD, LD, [facility]
--- NOTE | 2019-03-08 13:15 | NUR ---
report called to karen, daughter notified of transfer back to [facility] room 503.
--- NOTE | 2019-04-08 09:58 | Discharge Summary ---
CHIEF COMPLAINT: Chronic anemia and sacral decubitus, here for transfusion. HISTORY: In the emergency room, the patient's chest was revealing inspiratory crackles. His G-tube was in place. His lower extremities were showing trace edema. The patient is an unfortunate individual who is bed-bound and does not follow commands. He is vent dependent, noted to have a sacral decubitus, bed-bound individual with anemia. Admitted now for 24-hour observation care with transfusion and then the patient will be returning back to the [facility] at [facility]. IMAGING: Chest x-ray shows suboptimal inflation. Possible pulmonary venous congestion, patchy opacities in the lung bases suggestive of segmental atelectasis versus infection in the proper clinical setting. Followup chest x-ray the next day with comparison shows findings compatible with central pulmonary vascular congestion and moderate pulmonary edema. Superimposed pneumonia or aspiration may be a consideration. Small to moderate left pleural effusion with left greater than right bibasilar atelectasis. Cultures of blood show staphylococcus coagulase negative. LABORATORY STUDIES: Shows a CBC with a white cell count elevated at 19,300, H and H were low at 6.2 and 20.2. The patient received transfusion. Followup CBC the next day shows white cell count had increased to 24,200, H and H improved to 8.1 and 25.3. Urinalysis is unremarkable. Chemistries, initial study shows electrolytes to be stable. CO2 was 43. BUN and creatinine 62 and 0.68 respectively. Glucose was 154. BNP 1400. Liver enzymes showing AST 87, ALT 73, and alkaline phosphatase 378. Next day followup study shows AST 55, ALT 63, and alkaline phosphatase 329. Followup potassium was 3.4. Followup CO2 41. Repeat BUN and creatinine 57 and 0.66. The patient had a good response from the transfusion, and was transferred back to the [facility] at [facility] for continuation of care. We will continue on his vent protocols. We will continue on his current MARs, we will continue on his diet management. I will be evaluating the patient's care at that facility routinely. The staff will contact me for any questions or concerns. Dictated by CARTER Santana Rainer Ernst MD CC/MODL /[id number]
== END 2019-03-08 13:57 | disposition home or self-care (01) ==
LOC: ER 17:42 → ERHOLD 20:52 → INTOOBSV 20:52 → ICU 21:19
DX: D50.0 Iron deficiency anemia secondary to blood loss (chronic) (principal); I10 Essential (primary) hypertension; R53.1 Weakness; E11.9 Type 2 diabetes mellitus without complications; J44.9 Chronic obstructive pulmonary disease, unspecified; L89.159 Pressure ulcer of sacral region, unspecified stage; Z74.01 Bed confinement status; Z99.11 Dependence on respirator [ventilator] status; Z93.1 Gastrostomy status; J96.10 Chronic respiratory failure, unspecified whether with hypoxia or hypercapnia; Z86.73 Personal history of transient ischemic attack (TIA), and cerebral infarction without residual deficits; Z87.440 Personal history of urinary (tract) infections; Z93.0 Tracheostomy status; Z88.0 Allergy status to penicillin; Z82.49 Family history of ischemic heart disease and other diseases of the circulatory system
CPT/HCPCS: 36415 ×2; 36430; 51700; 71045 ×2; 80053 ×2; 81001; 82550; 82553; 83605; 83880; 84484; 85025 ×2; 85610; 85730; 86850; 86900; 86920; 87040; 87071; 87205; 93005; 94002; 99285; C9113 ×2; G0378 ×2; J7050 ×2; P9016 ×2